=== PATIENT | female | born 1955 | race Caucasian/White ===

== ENCOUNTER → 2022-09-29 09:47 | Outpatient (BNVA) | payer MEDICARE, OTHER, SELFPAY | PROVIDERS: Family Provider Nurse Practitioner Family; PCP Family Medicine; Visit Provider Family Medicine | DX: Z13.220 Encounter for screening for lipoid disorders (principal); Z13.6 Encounter for screening for cardiovascular disorders; F17.219 Nicotine dependence, cigarettes, with unspecified nicotine-induced disorders; M62.830 Muscle spasm of back; Z76.89 Persons encountering health services in other specified circumstances | CPT/HCPCS: 80053; 80061; 85025 ==

== ENCOUNTER 2022-10-12 15:26 | Outpatient (CLI) | payer MEDICARE, OTHER, SELFPAY ==
--- NOTE | 2022-10-12 15:38 | MM_ITS ---
WS: [id number] BILATERAL 3D TOMOSYNTHESIS DIGITAL SCREENING MAMMOGRAPHY WITH CAD CLINICAL INFORMATION: Breast CA screening. HISTORY: Screening mammogram. No current complaints. COMPARISON: None. TECHNIQUE: Bilateral CC and MLO views. FINDINGS: Scattered fibroglandular densities bilaterally. No suspicious focal mass, asymmetry, calcifications, or architectural distortion. No evidence of malignancy. Biopsy clip RIGHT breast. A few incidental pu nctate calcifications. MM/[place] [id number] IMPRESSION: BI-RADS: 2-Benign FOLLOW UP: 1 Year Follow-up Recommend return to annual screening mammography.
== END 2022-10-12 15:27 | disposition home or self-care (01) ==
LOC: RAD 15:31
PROVIDERS: PCP Family Medicine; Visit Provider Family Medicine
DX: Z12.31 Encounter for screening mammogram for malignant neoplasm of breast (principal)
CPT/HCPCS: 77063; 77067

== ENCOUNTER 2022-10-13 14:21 | Outpatient (CLI) | payer MEDICARE, OTHER, SELFPAY ==
--- NOTE | 2022-10-13 14:30 | CT_ITS ---
WS: [id number] LDCT LUNG CANCER SCREENING TECHNIQUE: Noncontrast CT of the chest with coronal and sagittal reformatted images. CLINICAL INFORMATION: Lung CA screening. 50 pack years. COMPARISON: None. DLP: 79.10 mGy.cm DIvol: Mean CTDIvol: 1.80 (mGy) All CT scans at [facility] use at least one of these dose optimization techniques: automat ed exposure control; mA and/or kV adjustment per patient size (includes targeted exams where dose is matched to clinical indication); or iterative reconstruction. FINDINGS: Moderate chronic emphysematous changes. RIGHT upper lobe nodule measuring 5.3 mm. Small LEFT lower lo be nodule at the diaphragm measuring 4 mm. Subpleural nodule LEFT lower lobe laterally measuring 7 mm . Additional LEFT lower lobe nodule laterally measuring 6 mm. Noncalcified nodule RIGHT lower lobe la terally measuring 5 mm. Normal caliber thoracic aorta. Aortic calcification. Coronary calcification. No mediastinal or hilar lymphadenopathy. No axillary lymphadenopathy. Adrenal glands are normal. Small esophageal hiatal hernia. CT/CT lung screening [id number] IMPRESSION: Multiple noncalcified nodules measuring 6 to 7 mm. Recommend 6 aracelis h follow-up. No prior comparisons. LUNG-RADS: 3-Probably Benign FOLLOW UP: 6 Month LDCT
== END 2022-10-13 14:22 | disposition home or self-care (01) ==
LOC: RAD 14:23
PROVIDERS: PCP Family Medicine; Visit Provider Family Medicine
DX: Z12.2 Encounter for screening for malignant neoplasm of respiratory organs (principal); F17.219 Nicotine dependence, cigarettes, with unspecified nicotine-induced disorders
CPT/HCPCS: 71271

== ENCOUNTER 2023-07-26 06:59 | Inpatient (IN) | payer MEDICARE, OTHER, SELFPAY ==
[2023-07-26] VITALS (11 sets, daily range): BP systolic 122–166; BP diastolic 59–103; PULSE 65–94; RESP 14–26; TEMP 36.6–37.1; O2SAT 91–96; BMI 30.5; BMI 31.3
--- NOTE | 2023-07-26 07:06 | CTR_ITS ---
PROCEDURE INFORMATION: Exam: CT Head Without Contrast Exam date and time: 07/26/2023 7:02 AM Age: 68 years old Clinical indication: Stroke-like symptoms; Speech disturbance; Additional info: Symptoms of acute stroke TECHNIQUE: Imaging protocol: Computed tomography of the head without contrast. Radiation optimization: All CT scans at this facility use at least one of these dose optimization techniques: automated exposure control; mA and/or kV adjustment per patient size (includes targeted exams where dose is matched to clinical indication); or iterative reconstruction. Other technique: STROKE PROTOCOL was implemented. COMPARISON: No relevant prior studies available. RADIATION DOSE METRICS: Total DLP (mGy-cm): 1011.38 FINDINGS: Brain: There is early evolving right opercular acute infarct. There is no midline shift, acute hemorrhage or extra-axial fluid collection. Cerebral ventricles: No ventriculomegaly. Paranasal sinuses: Mucosal thickening is noted within ethmoid air cells with fluid in the visualized maxillary antra. Mastoid air cells: Visualized mastoid air cells are well aerated. Bones/joints: Unremarkable. No acute fracture. Soft tissues: Unremarkable. CT/CT head thrombolytic [id number] IMPRESSION: Evolving acute right opercular infarct. ASSESSMENT: ASPECTS ([place] Stroke Program Early CT Score) is 9. THIS REPORT CONTAINS FINDINGS THAT MAY BE CRITICAL TO PATIENT CARE. The findings were verbally communicated via telephone conference with HUGH PRADHAN at 7:21 AM SAP ABAP PROGRAMMER on 07/26/2023. The findings were acknowledged and understood.
--- NOTE | 2023-07-26 07:06 | ECG_ITS ---
[facility] Test Date: 2023-07-26 Pat Name: Michelle Lopez Department: Room: Gender: Female Bioinformatics Associate: : 1955 Requested By: Cem Camara Order Number: [id number] Amos MD: Antonio العراقي M.D. Measurements Intervals [place] Rate: 71 P: 51 MS: 161 QRS: -48 QRSD: 108 T: -89 QT: 435 QTc: 475 Interpretive Statements SINUS RHYTHM LEFT ANTERIOR FASCICULAR BLOCK [QRS AXIS <= -45, QR IN I, RS IN II] ST ELEVATION CONSISTENT WITH INJURY, PERICARDITIS, OR EARLY REPOLARIZATION [ST ELEVATION W/O NORMALLY INFLECTED T-WAVE] ST DEVIATION AND MODERATE T-WAVE ABNORMALITY, CONSIDER ANTEROLATERAL ISCHEMIA [-0.1+ mV T-WAVE IN V3-V6] ST DEVIATION AND MODERATE T-WAVE ABNORMALITY, CONSIDER INFERIOR ISCHEMIA [-0.1+ mV T-WAVE IN II/aVF] No previous ECG available for comparison Electronically Signed On 07-26-2023 9:55:30 CHIEF ESTIMATOR by Antonio العراقي M.D. [email or web address]vis[employer] Technologiespremier health.[employer]/store/OM/[id number]
--- NOTE | 2023-07-26 07:11 | ED_ITS ---
HPI - Neuro Symptoms/Deficit 2 General: Chief Complaint: Neuro Symptoms/Deficit Stated Complaint: weakness, possible stroke Time Seen by Provider: 07/26/23 07:06 Source: patient Mode of arrival: EMS History of Present Illness: 68-year-old female who presents to the e mergency room with left-sided ataxia and weakness as well as some word finding difficulty and dysarthria. She went to bed last night at around 8 or 830 in her normal state of health with no deficits that she woke up sometime middle of the night and fell evidently her son heard her fall talk to her but cannot completely confirm that she was normal at that time this morning when she woke up she was distinctively abnormal and called EMS. She denies any chest pain. She is not diabetic. She is not prescribed any anticoagulants. She is not on any antiplatelet therapy Onset (ago): hour(s) Last Observed Normal: 20:00 Location: speech History of same: No Severity: moderate Quality: weak and tingling Relieving factors: none Exacerbating factors: none Associated symptoms: Reports weakness; Deny chest pain, cough, diaphoresis, fevers/chills, headache(s), anorexia, malaise, nausea, seizures, short of breath, syncope, tingling, vertigo or vomiting Treatments Prior to Arrival: none Review of Systems 2 Const: Denies: fever(s), chills, malaise or diaphoresis Card: Denies: chest pain or syncope Resp: Denies: dyspnea GI: Denies: abdominal pain, nausea or vomiting : Denies: dysuria, urinary frequency or urinary urgency Musc: Denies: neck pain or back pain Skin/Breast: Denies: rash Neuro: Denies: headache(s) or vertigo PFSH ED 2 PFSH: Family History Mother Diabetes Other CAD (coronary artery disease) Cancer Hypertension Social History Smoking and tobacco/nicotine status: current every day tobacco/nicotine user cigarettes Packs smoked per day: 1 Second hand smoke exposure: No Alcohol intake: current Alcohol intake frequency: holidays/special occasions only Substance/Drug Use: never Adopted: No Caregiver/support person: No Lives independently: Yes Marital status: Single Number of children: 2 service: No Current occupational status: employed Current occupational exposures/hazards: No Pets and animals: No Do you think of yourself as: Straight/Heterosexual Current gender identity: Female Female Reproductive History: Spontaneous abortions: No NIH stroke score 2 NIHSS: Level Of Consciousness - 1a: 0 Level Of Consciousness Questions - 1b: Both Correct Level Of Consciousness Commands - 1c: Both Correct Best Gaze - 2: Normal Visual Myers - 3: No Visual Loss Facial Palsy - 4: N ormal Motor Arm Right - 5: No Drift Motor Arm Left - 5: Drift Motor Leg Right - 6: No Drift Motor Leg Left - 6: Drift Limb Ataxia - 7: Present In One Limb Sensory - 8: Mild To Moderate Loss Best Language - 9: M ild/Moderate Aphasia Dysarthia - 10: Mild/Moderate Dysarthia Extinction And Inattention - 11: 0 Score: Total Score: 6 Physical Exam 2 Const: COMMON NORMALS: no acute distress and healthy appearing GENERAL APPEARANCE: cooperative and comfortable ORIENTATION/CONSCIOUSNESS: Yes awake, Yes oriented to person, Yes oriented to place and Yes oriented to time HENMT: COMMON NORMALS: normocephalic, atraumatic and hearing grossly normal bilaterally HEAD & SCALP: normocephalic and atraumatic Resp: COMMON NORMALS: normal respiratory effort, No retractions, No use of accessory muscles and clear to auscultation bilaterally AUSCULTATION: clear to auscultation bilaterally Cardio: COMMON NORMALS: regular rate, regular rhythm and No murmurs present (Cardio) RATE: regular rate RHYTHM: regular rhythm GI: COMMON NORMALS: Soft to palpation and No hepatosplenomegaly present A USCULTATION: Yes normoactive bowel sounds PALPATION: Yes Soft to palpation, No Tenderness to palpation present (GI), No Guarding due to palpation present (GI) and Yes No hepatosplenomegaly present Extremity: COMMON NORMALS: normal to inspection, capillary refill normal, no clubbing, cyanosis or edema, no calf tenderness and no pedal edema Neuro: SENSORIUM/ORIENTATION: Yes oriented to person, Yes oriented to place and Yes oriented to time OTHER: See NIH scoring system. Patient's is 6 Psych: COMMON NORMALS: mental status grossly normal Skin: COMMON NORMALS: no rashes or lesions noted GENERAL SKIN EXAM: no rashes or lesions noted Course 2 Vital Signs: Vital signs: Vital Signs Temperature 98 F 07/26/23 07:09 Pulse Rate 75 07/26/23 08:30 Respiratory Rate 16 07/26/23 08:30 Blood Pressure 143/72 07/26/23 08:30 Pulse Oximetry 96 07/26/23 08:30 Oxygen Delivery Me thod Room Air 07/26/23 08:30 MDM - Neuro Symptoms/Deficit Medical Decision Making Acute RCA CVA. Discussed with radiologist there is no identifiable embolism. She is outside the timeframe for any anticoagulation intervention. Will admit to hospitalist service for further workup and secondary stroke prevention Medical Records I reviewed the patient's medical records. Lab Data I reviewed the patient's lab results. 07/26/23 08:02 07/26/23 08:[address] 07/26/23 07:06 IMPRESSION: Evolving acute right opercular infarct. ASSESSMENT: ASPECTS ([place] Stroke Program Early CT Score) is 9. THIS REPORT CONTAINS FINDINGS THAT MAY BE CRITICAL TO PATIENT CARE. The findings were verbally communicated via telephone conference with CEM PRADHAN at 7:21 AM VENEER MATCHER on 07/26/2023. The findings were acknowledged and understood. Laboratory Results WBC 12.19 10^3/uL (3.29-11.43) H 07/26/23 08:02 Corrected WBC Cancelled 07/26/23 06:37 RBC 3.40 10^6/uL (3.85-5.65) L 07/26/23 08:02 Hgb 12.70 g/dL (11.27-16.99) 07/26/23 08:02 Hct 34.3 % (36-47) L 07/26/23 08:02 MCV 100.9 fl (85-98) H 07/26/23 08:02 MCH 37.4 pg (27-33) H 07/26/23 08:02 MCHC 37.0 g/dL (30-55) 07/26/23 08:02 RDW 17.5 % (12.1-15.1) H 07/26/23 08:02 Plt Count 330 10^3/cmm (157-399) 07/26/23 08:02 MPV 9.8 fL (7.4-10.4) 07/26/23 08:02 Gran % Cancelled 07/26/23 06:37 Neut % (Auto) 75.5 % 07/26/23 08:02 Lymph % (Auto) 16.3 % 07/26/23 08:02 [place] % (Auto) 6.4 % 07/26/23 08:02 Eos % (Auto) 0.7 % 07/26/23 08:02 Baso % (Auto) 0.4 % 07/26/23 08:02 Neut # (Auto) 9.19 10^3/uL (1.8-7.7) H 07/26/23 08:02 Lymph # (Auto) 2.0 10^3/uL (0.8-4.8) 07/26/23 08:02 [place] # (Auto) 0.8 10^3/uL (0.2-0.9) 07/26/23 08:02 Eos # (Auto) 0.1 10^3/uL (0.0-0.8) 07/26/23 08:02 Baso # (Auto) 0.1 10^3/uL (0.0-0.1) 07/26/23 08:02 Absolute Gran (auto) Cancelled 07/26/23 06:37 Nucleated RBC % (auto) 0 % 07/26/23 08:02 Nucleated RBCs # 0.0 /100WBC 07/26/23 08:02 PT 12.70 SECONDS (12.1-14.9) 07/26/23 06:37 INR 0.93 (0.8-1.2) 07/26/23 06:37 APTT 25.6 SECONDS (23.9-36.7) 07/26/23 06:37 Sodium 133 mmol/L (136-145) L 07/26/23 08:02 Potassium 4.2 mmol/L (3.5-5.1) 07/26/23 08:02 Chloride 101 mmol/L (98-107) 07/26/23 08:02 Carbon Dioxide 21 mmol/L (22-29) L 07/26/23 08:02 Anion Gap 15.2 (5-19) 07/26/23 08:02 BUN 13 mg/dL (8-23) 07/26/23 08:02 Creatinine 0.7 mg/dL (0.5-0.9) 07/26/23 08:02 GFR Calculation 83.7 mL/min (90-130) L 07/26/23 08:02 Glucose 126 mg/dL (65-115) H 07/26/23 08:02 POC Glucose 147 mg/dL (70-110) H 07/26/23 07:15 Calculated Osmolality 278 mOsm/kg (285-295) L 07/26/23 08:02 Calcium 9.2 mg/dL (8.5-10.5) 07/26/23 08:02 Total Bilirubin 0.9 mg/dL (0.15-1.2) 07/26/23 08:02 AST 18 U/L (0-32) 07/26/23 08:02 ALT 12 U/L (0-33) 07/26/23 08:02 Alkaline Phosphatase 108 U/L (35-105) H 07/26/23 08:02 Troponin T Baseline 95 ng/L (0-10) H 07/26/23 06:37 Troponin T 120 Minute 99.41 ng/L (0-10) H 07/26/23 08:02 Delta Troponin T 4.41 ABS# (0-10) 07/26/23 08:02 Total Protein 6.9 g/dL (6.6-8.7) 07/26/23 08:02 Albumin 4.0 g/dL (3.5-5.2) 07/26/23 08:02 Globulin 2.9 g/dL (1.3-4.6) 07/26/23 08:02 Ethyl Alcohol < 10 mg/dL (0-10) 07/26/23 08:02 All radiology interpretation(s) finalized by discharge Discharge Plan Discharge Patient Disposition: Admitted As Inpatient Admit Provider: Francine Grider Clinical Impression: Cerebrovascular accident Condition: Stable Coding Level of Care Code ED Cutting And Boning Supervisor for Chg Fwd
[2023-07-26 07:19] LABS: Glucose Point of Care 147 mg/dL (70-110)
--- NOTE | 2023-07-26 07:21 | CT_ITS ---
WS: [id number] CT ANGIOGRAM CEREBRAL AND CAROTID ARTERIES HISTORY: acute CVA TECHNIQUE: CT angiogram is performed of the carotid and cerebral arteries. During arterial injection imaging is obtained from the skull vertex to the aortic arch in 1.25 mm imaging. Coronal and sagittal reformats are submitted. Additional multi planar reformats of the carotid and cerebral arteries are submitted, MIP imaging also reviewed. NASCET criteria utilized. [facility] at least one of these dose optimization techniques: automated exposure control; mA and/or kV adjust ment per patient size (includes targeted exams where dose is matched to clinical indication); or iter ative reconstruction. CONTRAST: Omnipaque 350; 100 mL IV. DLP: 477.30 mGy.cm COMPARISON: CT brain 07/26/2023. Carotid Angiogram: Right carotid: Common carotid artery: Arises normally from the innominate artery. No significant plaque or stenosis. Internal carotid artery: No plaque or stenosis. External carotid artery: Patent. Left carotid: Common carotid artery: Arises normally from the aorta. No significant plaque or stenosis. Internal carotid artery: Very mild intimal thickening. No high-grade obstruction. External carotid artery: Patent. Right vertebral artery: Unremarkable. Left vertebral artery: Small caliber but patent. Subclavian arteries: Small amount of calcified plaque at the origin of the subclavian arteries. No hi gh-grade stenosis. Upper thorax: Chronic centrilobular emphysematous changes at the lung apices. Thyroid gland: Normal. Osseous structures: No destructive bone lesions. CEREBRAL ANGIOGRAM: Intracranial vertebral arteries: Small caliber but patent LEFT vertebral artery. Normal RIGHT vertebr al artery. Basilar artery: No significant stenosis or occlusion. No aneurysm. Intracranial Internal carotid arteries: Moderate scattered calcified plaque with stenoses estimated a t greater than 60%. Large amount of plaque in the supraclinoid carotid arteries. Middle cerebral arteries: Normal. Questionable paucity of vessels distally. No filling defects. Anterior cerebral arteries and ACOM: Normal. Posterior cerebral arteries and PCOM's: Normal. Dural venous sinuses are normally enhancing. Mastoid air cells: Negative. Paranasal sinuses: Small air-fluid levels in the maxillary sinuses. Calvarium: Normal. IMPRESSION: 1. No significant cervical carotid artery stenosis. 2. Increasing plaque through the cavernous portions of the intracranial carotid arteries. Stenosis g reater than 60%, greatest in the supraclinoid carotid arteries and greater on the RIGHT. 3. No thrombus identified in the middle cerebral arteries. 4. There may be very slight paucity of vessels in the distal RIGHT MCA. There is mild displacement o f the vessels related to the evolving infarct in the parietal lobe.
[2023-07-26 07:24] LABS: INR 0.93 (0.8-1.2)
[2023-07-26 07:25] LABS: Partial Thromboplastin Time 25.6 SECONDS (23.9-36.7)
[2023-07-26] MEDS: iohexol 350 mg/mL 500 mL Btl (per mL) IV (07:36)
[2023-07-26 07:51] LABS: Troponin(5th) Baseline 95 ng/L (0-10)
[2023-07-26 08:32] LABS: Alanine Aminotransferase 12 U/L (0-33); Alkaline Phosphatase 108 U/L (35-105); Anion Gap 15.2 (5-19); Aspartate Amino Transferase 18 U/L (0-32); Blood Urea Nitrogen 13 mg/dL (8-23); Calcium 9.2 mg/dL (8.5-10.5); Carbon Dioxide 21 mmol/L (22-29); Chloride 101 mmol/L (98-107); Globulin 2.9 g/dL (1.3-4.6); Glomerular Filtration Rate 83.7 mL/min (90-130); Glucose 126 mg/dL (65-115); Osmolality Calculated 278 mOsm/kg (285-295); Potassium 4.2 mmol/L (3.5-5.1); Sodium 133 mmol/L (136-145); Total Bilirubin 0.9 mg/dL (0.15-1.2); Total Protein 6.9 g/dL (6.6-8.7)
[2023-07-26 08:34] LABS: Troponin 5 2HR 99.41 ng/L (0-10); Troponin 5 2HR Delta 4.41 ABS# (0-10)
[2023-07-26 08:40] LABS: Alcohol Level < 10 mg/dL (0-10)
[2023-07-26 09:09] LABS: Basophils # 0.1 10^3/uL (0.0-0.1); Basophils % 0.4 %; Eosinophils # 0.1 10^3/uL (0.0-0.8); Eosinophils % 0.7 %; Hematocrit 34.3 % (36-47); Lymphocytes % 16.3 %; Mean Corpuscular Hemoglobin 37.4 pg (27-33); Mean Corpuscular Volume 100.9 fl (85-98); Mean Platelet Volume 9.8 fL (7.4-10.4); Monocytes # 0.8 10^3/uL (0.2-0.9); Monocytes % 6.4 %; Neutrophils # 9.19 10^3/uL (1.8-7.7); Neutrophils % 75.5 %; Nucleated Red Blood Cells % 0 %; Platelet Count 330 10^3/cmm (157-399); Red Cell Distribution Width 17.5 % (12.1-15.1); White Blood Count 12.19 10^3/uL (3.29-11.43)
--- NOTE | 2023-07-26 09:14 | ECG_ITS ---
[facility] Test Date: 2023-07-26 Pat Name: Michelle Lopez Department: Room: EDIP Gender: Female Bryologist: : 1955 Requested By: Cem Camara Order Number: [id number] Amos MD: Antonio العراقي M.D. Measurements Intervals [place] Rate: 72 P: 64 CT: 176 QRS: -50 QRSD: 109 T: 256 QT: 441 QTc: 484 Interpretive Statements SINUS RHYTHM LEFT ANTERIOR FASCICULAR BLOCK [QRS AXIS <= -45, QR IN I, RS IN II] ST and T changes anterior precordial leads. Consider pericardial injury, myocardial injury or central nervous system injury. Compared to ECG 07/26/2023 07:11:15 Myocardial infarct finding now present Early repolarization no longer present ST (T wave) deviation still present Electronically Signed On 07-26-2023 10:13:48 INFORMATION SYSTEMS PLANNER by Antonio العراقي M.D. [id number]
[2023-07-26] MEDS: sodium chloride 0.9% 1,000 ML 100 ML IV ×2 (09:28→18:20)
[2023-07-26] MEDS: aspirin 325 mg Tablet PO (09:29)
[2023-07-26 11:18] LABS: Amphetamines Screen Urine Negative (Negative); Barbiturates Screen Urine Negative (Negative); Benzodiazepines Screen Urine Negative (Negative); Cocaine Screen Urine Negative (Negative); Opiate Screen Urine Negative (Negative); PCP Screen Urine Negative (Negative); THC Screen Urine Negative (Negative)
[2023-07-26 11:24] LABS: Add Urine Microscopic? YES; Bilirubin Urine Neg (Negative); Blood Urine 2+ (Negative); Glucose Urine UA Norm (Normal); Ketones Urine Negative (Negative); Leukocyte Esterase Urine Negative (Negative); Nitrate Urine Negative (Negative); Protein Urine Trace (Negative); Specific Gravity, Urine 1.005 (1.005-1.030); Urine Appearance Clear (CLEAR); Urine Color Yellow (Yellow); Urobilinogen Urine 1 mg/dL (Negative); pH Urine 6.5 (5-7)
[2023-07-26 11:26] LABS: Add Urine Culture? No; Bacteria Urine 1+ /hpf; Mucus Urine TRACE /hpf; RBC Urine 0-4 /hpf (0-2); Squamous Epithelial Cell Urine 0-4 /hpf (0-5); WBC Urine 0-4 /hpf (0-5)
--- NOTE | 2023-07-26 11:55 | P.HP_ITS ---
Providers/Chief Complaint 2 Admitting Physician: Francine Grider MD Primary Care Provider: Prem Wade DO Chief Complaint: weakness, possible stroke History of Present Illness Michelle Lopez is a 68 year old female with history of chronic smoking , no other known medical comorbidities p/w stroke like symptoms that started at 7: 30 pm last night. Patient states she was just heading to bed, when she noticed her left arm drifting mildly and not being in control of her arm. She went to bed not making much of her symptoms. She woke up at 8: 30 pm to walk to the bathroom but states that she fell on the way. She has some scrapes over her left knee from this fall. She was still able to get up and walk to the bathroom and back into bed. States that left arm had continued to feel funny . States she felt disoriented when she woke up but this is not unusual for her. Then when she woke up this morning, she noticed that her leg arm was weaker, she was unsteady on her feet and needed to crawl to her son's bedroom to get help and now also had dysarthria and word finding difficulty. Cam to ER with abover complaints. CT head shows evolving stroke and CTA showed no MCA occlusion but proximal 60% stenosis of the intracranial carotid artery on the left . no h/o HTN. DM. HLD. Review of Systems 2 General: Reports: 10 or more systems reviewed and unremarkable except in HPI and below Const: Denies: fever(s), chills or body aches Eyes: Denies: change in vision, blurry vision or photophobia ENMT: Reports: hoarseness; Denies: throat pain, enlarged tonsils, odynophagia or nasal congestion Card: Denies: chest pain, palpitations, irregular heart rhythm, edema, swelling of feet/ankles, lightheadedness, pre-syncope, dyspnea on exertion or orthopnea Resp: Denies: dyspnea, productive cough, non-productive cough, wheezing, stridor, pain on inspiration, change in phlegm color, hemoptysis or chest congestion GI: Denies: abdominal pain, nausea, vomiting, hematemesis, coffee ground emesis, dysphagia, heartburn, diarrhea, constipation, GI cramping, change in stool character, hematochezia or melena : Denies: flank pain, difficulty voiding, dysuria, urinary frequency, urinary urgency, urinary hesitancy or hematuria Musc: Denies: neck pain, back pain, extremity pain, joint swelling, joint warmth or deformity Neuro: Denies: headache(s), numbness in extremities, weakness in extremities, sensory changes, difficulty walking, frequent falls, dizziness, vertigo, behavioral changes, Slurred speech present or seizure-like activity Psych: Denies: anxiety, depression, suicidal ideation or homicidal ideation Endo: Denies: polyuria, polydipsia, tired all the time, cold intolerance or hot flashes Guero/Lymph: Denies: easy bruising or easy bleeding Medications/Allergies Home Medications Medication Instructions Recorded Confirmed Last Taken Type tizanidine 4 mg tablet 4 mg PO BID PRN muscle spasticity 09/29/22 09/29/22 Unknown Rx #20 tabs Allergies Allergy/AdvReac Type Severity Reaction Status Date / Time No Known Allergies Allergy Verified 07/26/23 07:14 PFSH Acute 2 PFSH: Family History Mother Diabetes Other CAD (coronary artery disease) Cancer Hypertension Social History Smoking and tobacco/nicotine status: current every day tobacco/nicotine user cigarettes Packs smoked per day: 1 Second hand smoke exposure: No Alcohol intake: current Alcohol intake frequency: holidays/special occasions only Substance/Drug Use: never Adopted: No Caregiver/support person: No Lives independently: Yes Marital status: Single Number of children: 2 service: No Current occupational status: employed Current occupational exposures/hazards: No Pets and animals: No Do you think of yourself as: Straight/Heterosexual Current gender identity: Female Female Reproductive History: Spontaneous abortions: No Vitals/I&O/Wt Last Vital Signs Temp 98 F 07/26/23 07:09 Pulse 80 07/26/23 11:46 Resp 15 07/26/23 11:46 BP 143/59 07/26/23 11:46 Pulse Ox 93 07/26/23 11:46 O2 Del Method Room Air 07/26/23 08:30 07/25/23 07/26/23 07/26/23 22:59 06:59 14:59 Intake Total 1000 / 1000 Balance 1000 / 1000 Weight last 48 hrs Weight 80.739 kg Physical Exam 2 Narrative: General: No acute distress, AO x3 HEENT: PERRLA, pupils bilaterally equal and reactive, pallors not present Chest: Normal vesicular breath sounds, no added sounds, equal good air entry bilaterally CVS: S1-S2 regular, no murmurs, no tachycardia, no gallops, no rubs Abdomen: Soft, nontender, no organomegaly, bowel sounds present Neuro: NIHSS 6, left upper and lower extremity drift, dysarthria, facial asymmetery, intermittent word finding difficulty Data 07/26/23 08:02 07/26/23 08:02 Other data: Radiology Impressions Head CT 07/26/23 07:06 IMPRESSION: Evolving acute right opercular infarct. ASSESSMENT: ASPECTS ([place] Stroke Program Early CT Score) is 9. 07/26/23 CTA head and neck IMPRESSION: 1. No significant cervical carotid artery stenosis. 2. Increasing plaque through the cavernous portions of the intracranial carotid arteries. Stenosis greater than 60%, greatest in the supraclinoid carotid arteries and greater on the RIGHT. 3. No thrombus identified in the middle cerebral arteries. 4. There may be very slight paucity of vessels in the distal RIGHT MCA. There is mild displacement of the vessels related to the evolving infarct in the parietal lobe. THIS REPORT CONTAINS FINDINGS THAT MAY BE CRITICAL TO PATIENT CARE. The findings were verbally communicated via telephone conference with HUGH PRADHAN at 7:21 AM SOCIAL SCIENCE INSTRUCTOR on 07/26/2023. The findings were acknowledged and understood. Laboratory Results WBC 12.19 10^3/uL (3.29-11.43) H 07/26/23 08:02 Corrected WBC Cancelled 07/26/23 06:37 RBC 3.40 10^6/uL (3.85-5.65) L 07/26/23 08:02 Hgb 12.70 g/dL (11.27-16.99) 07/26/23 08:02 Hct 34.3 % (36-47) L 07/26/23 08:02 MCV 100.9 fl (85-98) H 07/26/23 08:02 MCH 37.4 pg (27-33) H 07/26/23 08:02 MCHC 37.0 g/dL (30-55) 07/26/23 08:02 RDW 17.5 % (12.1-15.1) H 07/26/23 08:02 Plt Count 330 10^3/cmm (157-399) 07/26/23 08:02 MPV 9.8 fL (7.4-10.4) 07/26/23 08:02 Gran % Cancelled 07/26/23 06:37 Neut % (Auto) 75.5 % 07/26/23 08:02 Lymph % (Auto) 16.3 % 07/26/23 08:02 Green % (Auto) 6.4 % 07/26/23 08:02 Eos % (Auto) 0.7 % 07/26/23 08:02 Baso % (Auto) 0.4 % 07/26/23 08:02 Neut # (Auto) 9.19 10^3/uL (1.8-7.7) H 07/26/23 08:02 Lymph # (Auto) 2.0 10^3/uL (0.8-4.8) 07/26/23 08:02 Green # (Auto) 0.8 10^3/uL (0.2-0.9) 07/26/23 08:02 Eos # (Auto) 0.1 10^3/uL (0.0-0.8) 07/26/23 08:02 Baso # (Auto) 0.1 10^3/uL (0.0-0.1) 07/26/23 08:02 Absolute Gran (auto) Cancelled 07/26/23 06:37 Nucleated RBC % (auto) 0 % 07/26/23 08:02 Nucleated RBCs # 0.0 /100WBC 07/26/23 08:02 PT 12.70 SECONDS (12.1-14.9) 07/26/23 06:37 INR 0.93 (0.8-1.2) 07/26/23 06:37 APTT 25.6 SECONDS (23.9-36.7) 07/26/23 06:37 Sodium 133 mmol/L (136-145) L 07/26/23 08:02 Potassium 4.2 mmol/L (3.5-5.1) 07/26/23 08:02 Chloride 101 mmol/L (98-107) 07/26/23 08:02 Carbon Dioxide 21 mmol/L (22-29) L 07/26/23 08:02 Anion Gap 15.2 (5-19) 07/26/23 08:02 BUN 13 mg/dL (8-23) 07/26/23 08:02 Creatinine 0.7 mg/dL (0.5-0.9) 07/26/23 08:02 GFR Calculation 83.7 mL/min (90-130) L 07/26/23 08:02 Glucose 126 mg/dL (65-115) H 07/26/23 08:02 POC Glucose 147 mg/dL (70-110) H 07/26/23 07:15 Calculated Osmolality 278 mOsm/kg (285-295) L 07/26/23 08:02 Calcium 9.2 mg/dL (8.5-10.5) 07/26/23 08:02 Total Bilirubin 0.9 mg/dL (0.15-1.2) 07/26/23 08:02 AST 18 U/L (0-32) 07/26/23 08:02 ALT 12 U/L (0-33) 07/26/23 08:02 Alkaline Phosphatase 108 U/L (35-105) H 07/26/23 08:02 Troponin T Baseline 95 ng/L (0-10) H 07/26/23 06:37 Troponin T 120 Minute 99.41 ng/L (0-10) H 07/26/23 08:02 Delta Troponin T 4.41 ABS# (0-10) 07/26/23 08:02 Total Protein 6.9 g/dL (6.6-8.7) 07/26/23 08:02 Albumin 4.0 g/dL (3.5-5.2) 07/26/23 08:02 Globulin 2.9 g/dL (1.3-4.6) 07/26/23 08:02 Urine Color Yellow (Yellow) 07/26/23 10:59 Urine Appearance Clear (CLEAR) 07/26/23 10:59 Urine pH 6.5 (5-7) 07/26/23 10:59 Ur Specific [place] 1.005 (1.005-1.030) 07/26/23 10:59 Urine Protein Trace (Negative) 07/26/23 10:59 Urine Glucose (UA) Norm (Normal) 07/26/23 10:59 Urine Ketones Negative (Negative) 07/26/23 10:59 Urine Blood 2+ (Negative) H 07/26/23 10:59 Urine Nitrate Negative (Negative) 07/26/23 10:59 Urine Bilirubin Neg (Negative) 07/26/23 10:59 Urine Urobilinogen 1 mg/dL (Negative) H 07/26/23 10:59 Ur Leukocyte Esterase Negative (Negative) 07/26/23 10:59 Urine RBC 0-4 /hpf (0-2) H 07/26/23 10:59 Urine WBC 0-4 /hpf (0-5) H 07/26/23 10:59 Ur Squamous Epith Cells 0-4 /hpf (0-5) H 07/26/23 10:59 Amorphous Sediment Not Reportable 07/26/23 10:59 Urine Bacteria 1+ /hpf (NONE) H 07/26/23 10:59 Urine Mucus Trace /hpf 07/26/23 10:59 Urine Opiates Screen Negative ng/mL (Negative) 07/26/23 10:59 Ur Barbiturates Screen Negative ng/mL (Negative) 07/26/23 10:59 Ur Phencyclidine Scrn Negative ng/mL (Negative) 07/26/23 10:59 Ur Amphetamines Screen Negative ng/mL (Negative) 07/26/23 10:59 U Benzodiazepines Scrn Negative ng/mL (Negative) 07/26/23 10:59 Urine Cocaine Screen Negative ng/mL (Negative) 07/26/23 10:59 U Marijuana (THC) Screen Negative ng/mL (Negative) 07/26/23 10:59 Ethyl Alcohol < 10 mg/dL (0-10) 07/26/23 08:02 A&P Assessment and plan (1) Cerebrovascular accident: 68F with acute stroke NIHSS [address] head with Evolving acute right opercular infarct. CTA head and neck with Increasing plaque through the cavernous portions of the intracranial carotid arteries. Stenosis greater than 60%, greatest in the supraclinoid carotid arteries and greater on the RIGHT. No thrombus identified in the middle cerebral arteries.There may be very slight paucity of vessels in the distal RIGHT MCA. There is mild displacement of the vessels related to the evolving infarct in the parietal lobe. Call placed to neuroconsult line at [facility] to discuss above findings. Not a candidate for tPA as > 12 hrs since symptoms onset at this point Admit to med surg with stroke monitoring telemetry monitoring EKG notes to have ST-T changes in anterolatreal leads , unknown timeline of the same ERP discussed with nanny caregiver Dr. العراقي- appears to be related to acute stroke Check troponin series at 6 hrs Baseline trop elevated at 99, delta not significant at 2 hrs , trending down . Likely related to acute stroke patient denies any chest pain, dyspnea at this time Check echocardiogram PT/OT/ speech therapy check lipid panel, hba1c start ASA 81 mg, Atorvaststain 40mg with plan to add plavix after discussion with neurology Attestations 2 Medical Necessity Statement*: > 2 midnight admission is anticipated Coding Level of Care Code Acute Code for [facility] Fwd Diagnoses Cerebrovascular accident I63.9
[2023-07-26 12:26] LABS: Chol HDL Ratio 4.68 mg/dL (0.0-4.40); Cholesterol 220 mg/dL (0-200); HDL Cholesterol 47 mg/dL (60-100); LDL Cholesterol Calculated 158 mg/dL (50-129); LDL HDL Ratio 3.36 RATIO (0.00-3.22); Triglycerides 74 mg/dL (0-150)
[2023-07-26 12:32] LABS: Estmated Average Glucose 114; Hemoglobin A1C 5.6 % (4.0-6.0)
[2023-07-26 12:49] LABS: Troponin 5 6HR 92.43 ng/L (0-10)
[2023-07-26 12:50] LABS: Troponin 5 6HR Delta -2.57 ng/L (0-12)
--- NOTE | 2023-07-26 13:14 | ECG_ITS ---
[facility] Test Date: 2023-07-26 Pat Name: Michelle Lopez Department: Room: EDIP Gender: Female Scaleman: : 1955 Requested By: Cem Camara Order Number: [id number] Amos MD: Salena Hunter M.D. Measurements Intervals [place] Rate: 61 P: 64 AK: 163 QRS: -50 QRSD: 112 T: 264 QT: 450 QTc: 456 Interpretive Statements SINUS RHYTHM LEFT AXIS DEVIATION [QRS AXIS < -30] MODERATE INTRAVENTRICULAR CONDUCTION DELAY [110+ ms QRS DURATION] MARKED ST ELEVATION, CONSIDER ANTERIOR INJURY [MARKED ST ELEVATION W/O NORMALLY INFLECTED T-WAVE IN V2-V5] ACUTE VT Compared to ECG 07/26/2023 09:30:18 Left-axis deviation now present Intraventricular conduction delay now present ST (T wave) deviation now present Myocardial infarct finding now present Left anterior fascicular block no longer present Electronically Signed On 07-27-2023 19:59:15 OUTBOARD TECHNICIAN by Salena Hunter M.D. [email or web address]
[2023-07-26] MEDS: clopidogrel 75 mg Tablet PO (14:42)
--- NOTE | 2023-07-26 14:52 | PC.NURSE ---
took over pt care at 1030
--- NOTE | 2023-07-26 16:06 | USCV_ITS ---
Michelle Lopez Age: 68 Gender: F : 1955 Exam Date: 07/26/2023 16:41 Ordering Phys: Francine Grider MD Technologist: CT Exam Location: [facility] [place] Indication: stroke BP: 130 / 80 HR: 69 Rhythm: Sinus Technical Quality: Adequate MEASUREMENTS (Male / Female) Normal Values 2D ECHO LVOT Diameter 2.1 cm LV Ejection Fraction MOD 2C 49.1 % LV Ejection Fraction 2C AL 48.5 % LA Diameter 3.8 cm Aorta at Sinotubular Diameter 2.3 cm IVC Diameter 1.8 cm M-MODE Aortic Annulus Diameter 3.8 cm LA Ao Ratio MM 1.2 MV E Point Septal Separation 1.1 cm DOPPLER AV Peak Velocity 166.0 cm/s LVOT Peak Velocity 107.0 cm/s AV Area Cont Eq vti 2.5 cm squared AV Area Cont Eq pk 2.1 cm squared MV E' Velocity 9.0 cm/s TR Peak Velocity 133.7 cm/s TR Peak Gradient 7.1 mmHg TV Peak E Velocity 80.0 cm/s Right Atrial Pressure 3.0 mmHg Pulmonary Artery Systolic Pressu 10.1 mmHg PV Peak Velocity 129.0 cm/s FINDINGS Left Ventricle Severe diffuse hypokinesis of the LV apex. LV ejection fraction around 49%. Features of apical ballooning.mild left ventricular hypertrophy. Grade I/IV diastolic dysfunction (abnormal relaxation filling pattern), normal to mildly elevated filling pressures. Right Ventricle The right ventricle is normal in size and function. Right Atrium The right atrium is normal in size. Left Atrium Mildly increased left atrial size. Mitral Valve Mild mitral annular calcification. Aortic Valve Thickened aortic valve. Tricuspid Valve No gross abnormalities no Pulmonic Valve Pulmonic valve not well visualized. Pericardium Normal pericardium without effusion. Aorta Normal ascending aorta dimension. IVC The inferior vena cava appears normal. CONCLUSIONS Severe diffuse hypokinesis of the LV apex. LV ejection fraction around 49%. Features of apical ballooning, may suggest Takotsubo Mmild left ventricular hypertrophy. Grade I/IV diastolic dysfunction (abnormal relaxation filling pattern), normal to mildly elevated filling pressures. Mildly increased left atrial size. Mild mitral annular calcification. Thickened aortic valve. There is no pericardial effusion. There are no intracardiac masses. No similar previous studies are available for comparison Dr Salena Hunter MD FACC (Electronically Signed) Final Date: 27 July 2023 09:03 S
[2023-07-26] MEDS: atorvastatin 40 mg Tablet PO (20:19)
[2023-07-27] VITALS (7 sets, daily range): BP systolic 106–146; BP diastolic 66–75; PULSE 68–85; RESP 16–18; TEMP 36.4–36.9; O2SAT 91–97
[2023-07-27] MEDS: sodium chloride 0.9% 1,000 ML 100 ML IV (04:17)
[2023-07-27] MEDS: aspirin 81 mg EC Tablet PO (08:18)
[2023-07-27] MEDS: clopidogrel 75 mg Tablet PO (08:18)
--- NOTE | 2023-07-27 10:03 | PC.CHAP ---
Pastoral Care Encounter/Spiritual Assessment Type of Contact [] Declined shipping inspector visit [] Patient/Family/Request visit [] Outpatient visit [] Follow-up visit [] Physician referral [] Code/Alert [x] Routine visit [] Staff referral [] Actively dying [] Patient sleeping [x] Family support [] [] Out of room [] Palliative care [] [] Receiving care in room [] Pre-surgical visit [] Trauma [] Long length of stay [] ICU visit [] Other: Relational/Emotional Strength [x] Patient feels connected with others/family/visitors/staff [] Distress [] Loneliness/isolation [] Abandonment Spirituality of Patient [x] Person of Harmony [] Attends Latter-Day of their Harmony [x] Believes in Prayer [] Reads Bible or Scientology materials [] There are Spiritual issues to be addressed Reinforcement Maker Interventions [x] Prayer [x] Active listening [x] Non-anxious presence [x] Spiritual/emotional support [] Crisis/trauma care [] Spiritual counseling [] Bereavement support [] Provided bereavement packet [] Provided Bible/devotional materials [] Provided toy/stuffed animal, coloring book to patient or family member [] Provided Communion [] Anointing/[place] [] Salvation [x] Completed spiritual assessment [] Other: Impact on Illness or Injury [] Angry [] Fearful [] Anxious [] Often cries [] Exhaustion [] Unable to work [] Unable to attend anabaptist [] Unable to walk/stand [] Unable to read [] Unable to drive [] Unable to eat/drink [] Unable to sleep [] Unable to be with family [] Patient intubated [] Other: Summary Time spent with patient 10 min
--- NOTE | 2023-07-27 16:48 | PM.PN ---
Subjective Subjective: No acute interim events. Assessed by therapies, patient was unsteady with gait and thought to benefit from skilled rehab. Cleared by speech therapy to start a diet. Medications: Reviewed: Yes Vitals/I&O/Wt Last Vital Signs Temp 97.5 F L 07/27/23 15:22 Pulse 68 07/27/23 15:22 Resp 18 07/27/23 15:22 BP 146/68 07/27/23 15:22 Pulse Ox 97 07/27/23 15:22 O2 Del Method Room Air 07/27/23 15:22 07/27/23 07/27/23 07/27/23 06:59 14:59 22:59 Intake Total 995 / 2235 480 / 480 Output Total 1800 / 1800 1500 / 1500 Balance -805 / 435 480 / 480 -1500 / -1020 Weight last 48 hrs Weight 86.908 kg Weight 82.69 kg Weight 80.739 kg Physical Exam Narrative: General: No acute distress, AO x3 HEENT: PERRLA, pupils bilaterally equal and reactive, pallors not present Chest: Normal vesicular breath sounds, no added sounds, equal good air entry bilaterally CVS: S1-S2 regular, no murmurs, no tachycardia, no gallops, no rubs Abdomen: Soft, nontender, no organomegaly, bowel sounds present Neuro: NIHSS 6, left upper and lower extremity drift, dysarthria, facial asymmetery, intermittent word finding difficulty Urinary Catheter Management: Henry: Cath Placed During This Visit: no Reason for Continuing Indwelling Catheter: Other Data 07/26/23 08:02 07/26/23 08:02 A&P Assessment and plan (1) Cerebrovascular accident: 68F with acute stroke NIHSS [address] head with Evolving acute right opercular infarct. CTA head and neck with Increasing plaque through the cavernous portions of the intracranial carotid arteries. Stenosis greater than 60%, greatest in the supraclinoid carotid arteries and greater on the RIGHT. No thrombus identified in the middle cerebral arteries.There may be very slight paucity of vessels in the distal RIGHT MCA. There is mild displacement of the vessels related to the evolving infarct in the parietal lobe. Call placed to neuroconsult line at [facility] to discuss above findings. Not a candidate for tPA as > 12 hrs since symptoms onset at this point Admit to med surg with stroke monitoring telemetry monitoring EKG notes to have ST-T changes in anterolatreal leads , unknown timeline of the same ERP discussed with ticket collector or usher Dr. العراقي- appears to be related to acute stroke Check troponin series at 6 hrs Baseline trop elevated at 99, delta not significant at 2 hrs , trending down . Likely related to acute stroke patient denies any chest pain, dyspnea at this time Check echocardiogram PT/OT/ speech therapy check lipid panel, hba1c start ASA 81 mg, Atorvaststain 40mg with plan to add plavix after discussion with neurology Plan for today July 27, 2023. Appreciate PT OT and speech therapy evaluations. Start diet.d/c IVF. ongoing disposiiton plannign for SNF. Case was discussed with neurology on[facility]call at [facility], no current indication for neurosurgical or endovascular intervention. Recommended to continue aspirin Plavix for a minimum of 3 months and follow-up as outpatient. Troponin series trended down. No chest pain.Severe diffuse hypokinesai of LV apex. LVEF 49% , features suggestive of Takosubo. Consult cardiology for the same. Attestations Medical Necessity Statement*: disposition planning, cardiology consult given abnromal findings on echo with elevated troponins Coding Level of Care Code Acute Code for g Fwd Diagnoses Cerebrovascular accident I63.9
--- NOTE | 2023-07-27 18:13 | P.CONIM_ITS ---
Providers/Reason For Consult 2 Consulting Physician/Specialty*: MARCUS Hunter MD/cardiology Reason for Consult*: Patient admitted with a CVA, has abnormal EKG, echocardiogram and elevated troponin T Requesting Physician: Dr Sarah Grider Attending Physician: Francine Grider MD Primary Care Provider: Prem Wade DO History of Present Illness History of Present Illness Michelle Lopez is a 68 year old female with no significant past medical history, is admitted to hospital to the emergency room where she presented with complaints of left-sided weakness/unsteady gait/dysarthria. CT scan of the head revealed features of acute right opercular infarct. Her stroke symptoms are slowly improving. She had an echocardiogram done which revealed severe diffuse hypokinesia of LV apex with hypercontractility of the basal segments. LV ejection fraction on 49%. Features suggestive of Takotsubo syndrome. Cardiology consult is requested for further cardiac evaluation recommendations Patient has no chest pain or chest tightness. No unusual shortness of breath. Has no history for palpitation, dizziness or syncopal episode. She had a fall because of the unsteadiness, prior to the hospital admission. She has no previous history for coronary disease, myocardial infarction or congestive heart failure. No documented history for hypertension, diabetes or dyslipidemia. She has a longstanding history of smoking abuse, 1 pack a day for the last 50 years. Also has remote history of alcohol abuse. Currently she drinks couple of beers a month. Both parents had coronary interventions in their 70s. Paternal mother of a massive heart attack in the late 50s. Her brother of heart attack while waiting for a bypass surgery. But he was an alcoholic with history of drug abuse. Patient was recently told to have high cholesterol and was advised for dietary modification. Her CTA revealed a greater than 60% stenosis in the supraclinoid carotid arteries bilaterally, more on the right side Review of Systems 2 Narrative: CONSTITUTIONAL: No fever or chills. [] EYES: No blurring of vision or other visual disturbances lately. [] ENT: No hoarseness of voice, auditory disturbances or sore throat. [] CARDIOVASCULAR: As mentioned above. RESPIRATORY: No significant cough. GASTROINTESTINAL: No hematemesis or melena. GENITOURINARY: No dysuria or hematuria. INTEGUMENTARY: No skin rashes or history of skin cancer. NEURO: No transient ischemic attacks or amaurosis. PSYCHIATRIC: No history of psychosis or major depression. HEMATOLOGIC: No bleeding disorders or significant anemia. ENDOCRINE: No history of polyuria or polydipsia. MUSCULOSKELETAL: No recent joint pain or swelling. ALLERGY/IMMUNOLOGY: As mentioned above. Medications/Allergies Home Medications Medication Instructions Recorded Confirmed Last Taken Type No Known Home Medications 07/27/23 07/27/23 Unknown History Allergies Allergy/AdvReac Type Severity Reaction Status Date / Time No Known Allergies Allergy Verified 07/26/23 07:14 Current Medications Generic Name Dose Route Start Last Admin Trade Name Pearl PRN Reason Stop Dose Admin Aspirin 81 mg 07/27/23 09:00 07/27/23 08:18 Aspirin 81 Mg Ec Tablet PO 81 mg DAILY DEANDRE Administration Atorvastatin Calcium 40 mg 07/26/23 21:00 07/26/23 20:19 Atorvastatin 40 Mg Tablet PO 40 mg BEDTIME DEANDRE Administration Clopidogrel Bisulfate 75 mg 07/26/23 12:50 07/27/23 08:18 Clopidogrel 75 Mg Tablet PO 75 mg DAILY DEANDRE Administration PFSH Acute 2 PFSH: Family History Mother Diabetes Other CAD (coronary artery disease) Cancer Hypertension Social History Smoking and tobacco/nicotine status: current every day tobacco/nicotine user cigarettes Packs smoked per day: 1 Second hand smoke exposure: No Alcohol intake: current Alcohol intake frequency: holidays/special occasions only Substance/Drug Use: never Adopted: No Caregiver/support person: No Lives independently: Yes Marital status: Single Number of children: 2 service: No Current occupational status: employed Current occupational exposures/hazards: No Pets and animals: No Do you think of yourself as: Straight/Heterosexual Current gender identity: Female Female Reproductive History: Spontaneous abortions: No Vitals/I&O/Wt Last Vital Signs Temp 97.5 F L 07/27/23 15:22 Pulse 68 07/27/23 15:22 Resp 18 07/27/23 15:22 BP 146/68 07/27/23 15:22 Pulse Ox 97 07/27/23 15:22 O2 Del Method Room Air 07/27/23 15:22 07/27/23 07/27/23 07/27/23 06:59 14:59 22:59 Intake Total 995 / 2235 480 / 480 Output Total 1800 / 1800 1500 / 1500 Balance -805 / 435 480 / 480 -1500 / -1020 Weight last 48 hrs Weight 191 lb 9.6 oz Weight 182 lb 4.8 oz Weight 178 lb Physical Exam 2 Narrative: GENERAL: The patient is alert and oriented times three. Not in any acute distress. HEENT: No significant pallor, icterus or lymphadenopathy.Oral cavity: There are no mucous membrane lesions. NECK: Trachea appears to be central. No masses noted. No JVD or thyromegaly appreciated. Carotid bruit bilaterally. RESPIRATORY: Chest is symmetrical. No intercostals muscle retraction or any accessory muscle activation. There is no chest wall tenderness. Breath sounds are heard bilaterally. No rales or rhonchi heard. No evidence of any consolidation. BREASTS: Deferred. HEART: The heart sounds are normal. No S3 or S4. No significant murmurs. No pericardial rub ABDOMEN: No vessel pulsations or distention. No tenderness. No organomegaly appreciated. Bowel sounds are normally heard. : Deferred. RECTAL: Deferred. LYMPHATIC: No lymphadenopathy noted in the neck. EXTREMITIES: No edema or cyanosis. No clubbing. MUSCULOSKELETAL: No acute joint deformities or swelling SKIN: There are no significant rashes or ecchymosis NEUROPSYCHIATRIC: Her speech is somewhat slow. Minimal motor weakness of the left upper and lower extremity. Slight impairment of the hand coordination on the left side. Urinary Catheter Management: Henry: Cath Placed During This Visit: no Reason for Continuing Indwelling Catheter: Other Data 07/26/23 08:02 07/26/23 08:02 Other Labs: Laboratory Last Values WBC 12.19 10^3/uL (3.29-11.43) H 07/26/23 08:02 Corrected WBC Cancelled 07/26/23 06:37 RBC 3.40 10^6/uL (3.85-5.65) L 07/26/23 08:02 Hgb 12.70 g/dL (11.27-16.99) 07/26/23 08:02 Hct 34.3 % (36-47) L 07/26/23 08:02 MCV 100.9 fl (85-98) H 07/26/23 08:02 MCH 37.4 pg (27-33) H 07/26/23 08:02 MCHC 37.0 g/dL (30-55) 07/26/23 08:02 RDW 17.5 % (12.1-15.1) H 07/26/23 08:02 Plt Count 330 10^3/cmm (157-399) 07/26/23 08:02 MPV 9.8 fL (7.4-10.4) 07/26/23 08:02 Gran % Cancelled 07/26/23 06:37 Neut % (Auto) 75.5 % 07/26/23 08:02 Lymph % (Auto) 16.3 % 07/26/23 08:02 Nash % (Auto) 6.4 % 07/26/23 08:02 Eos % (Auto) 0.7 % 07/26/23 08:02 Baso % (Auto) 0.4 % 07/26/23 08:02 Neut # (Auto) 9.19 10^3/uL (1.8-7.7) H 07/26/23 08:02 Lymph # (Auto) 2.0 10^3/uL (0.8-4.8) 07/26/23 08:02 Nash # (Auto) 0.8 10^3/uL (0.2-0.9) 07/26/23 08:02 Eos # (Auto) 0.1 10^3/uL (0.0-0.8) 07/26/23 08:02 Baso # (Auto) 0.1 10^3/uL (0.0-0.1) 07/26/23 08:02 Absolute Gran (auto) Cancelled 07/26/23 06:37 Nucleated RBC % (auto) 0 % 07/26/23 08:02 Nucleated RBCs # 0.0 /100WBC 07/26/23 08:02 PT 12.70 SECONDS (12.1-14.9) 07/26/23 06:37 INR 0.93 (0.8-1.2) 07/26/23 06:37 APTT 25.6 SECONDS (23.9-36.7) 07/26/23 06:37 Sodium 133 mmol/L (136-145) L 07/26/23 08:02 Potassium 4.2 mmol/L (3.5-5.1) 07/26/23 08:02 Chloride 101 mmol/L (98-107) 07/26/23 08:02 Carbon Dioxide 21 mmol/L (22-29) L 07/26/23 08:02 Anion Gap 15.2 (5-19) 07/26/23 08:02 BUN 13 mg/dL (8-23) 07/26/23 08:02 Creatinine 0.7 mg/dL (0.5-0.9) 07/26/23 08:02 GFR Calculation 83.7 mL/min (90-130) L 07/26/23 08:02 Glucose 126 mg/dL (65-115) H 07/26/23 08:02 POC Glucose 147 mg/dL (70-110) H 07/26/23 07:15 Estimat Average Glucose 114 07/26/23 08:02 Hemoglobin A1c 5.6 % (4.0-6.0) 07/26/23 08:02 Calculated Osmolality 278 mOsm/kg (285-295) L 07/26/23 08:02 Calcium 9.2 mg/dL (8.5-10.5) 07/26/23 08:02 Total Bilirubin 0.9 mg/dL (0.15-1.2) 07/26/23 08:02 AST 18 U/L (0-32) 07/26/23 08:02 ALT 12 U/L (0-33) 07/26/23 08:02 Alkaline Phosphatase 108 U/L (35-105) H 07/26/23 08:02 Troponin T Baseline 95 ng/L (0-10) H 07/26/23 06:37 Troponin T 120 Minute 99.41 ng/L (0-10) H 07/26/23 08:02 Delta Troponin T 4.41 ABS# (0-10) 07/26/23 08:02 Troponin T Hi Sens 6Hr 92.43 ng/L (0-10) H 07/26/23 12:21 Troponin T Hi Sens 6Hr Delta -2.57 ng/L (0-12) L 07/26/23 12:21 Total Protein 6.9 g/dL (6.6-8.7) 07/26/23 08:02 Albumin 4.0 g/dL (3.5-5.2) 07/26/23 08:02 Globulin 2.9 g/dL (1.3-4.6) 07/26/23 08:02 Triglycerides 74 mg/dL (0-150) 07/26/23 08:02 Cholesterol 220 mg/dL (0-200) H 07/26/23 08:02 LDL Cholesterol, Calc 158 mg/dL (50-129) H 07/26/23 08:02 HDL Cholesterol 47 mg/dL (60-100) L 07/26/23 08:02 LDL/HDL Ratio 3.36 RATIO (0.00-3.22) H 07/26/23 08:02 Cholesterol/HDL Ratio 4.68 mg/dL (0.0-4.40) H 07/26/23 08:02 Urine Color Yellow (Yellow) 07/26/23 10:59 Urine Appearance Clear (CLEAR) 07/26/23 10:59 Urine pH 6.5 (5-7) 07/26/23 10:59 Ur Specific [place] 1.005 (1.005-1.030) 07/26/23 10:59 Urine Protein Trace (Negative) 07/26/23 10:59 Urine Glucose (UA) Norm (Normal) 07/26/23 10:59 Urine Ketones Negative (Negative) 07/26/23 10:59 Urine Blood 2+ (Negative) H 07/26/23 10:59 Urine Nitrate Negative (Negative) 07/26/23 10:59 Urine Bilirubin Neg (Negative) 07/26/23 10:59 Urine Urobilinogen 1 mg/dL (Negative) H 07/26/23 10:59 Ur Leukocyte Esterase Negative (Negative) 07/26/23 10:59 Urine RBC 0-4 /hpf (0-2) H 07/26/23 10:59 Urine WBC 0-4 /hpf (0-5) H 07/26/23 10:59 Ur Squamous Epith Cells 0-4 /hpf (0-5) H 07/26/23 10:59 Amorphous Sediment Not Reportable 07/26/23 10:59 Urine Bacteria 1+ /hpf (NONE) H 07/26/23 10:59 Urine Mucus Trace /hpf 07/26/23 10:59 Urine Opiates Screen Negative ng/mL (Negative) 07/26/23 10:59 Ur Barbiturates Screen Negative ng/mL (Negative) 07/26/23 10:59 Ur Phencyclidine Scrn Negative ng/mL (Negative) 07/26/23 10:59 Ur Amphetamines Screen Negative ng/mL (Negative) 07/26/23 10:59 U Benzodiazepines Scrn Negative ng/mL (Negative) 07/26/23 10:59 Urine Cocaine Screen Negative ng/mL (Negative) 07/26/23 10:59 U Marijuana (THC) Screen Negative ng/mL (Negative) 07/26/23 10:59 Ethyl Alcohol < 10 mg/dL (0-10) 07/26/23 08:02 Other data: EKG on 07/26/[address] elevation in T inversions in the anterolateral leads and inferior leads. No ST depressions. Echocardiogram on 07/27/2023 severe diffuse hypokinesis of the LV apex. LV ejection fraction around 49%. Features of apical ballooning, may suggest Takotsubo Mmild left ventricular hypertrophy. Grade I/IV diastolic dysfunction (abnormal relaxation filling pattern), normal to mildly elevated filling pressures. Mildly increased left atrial size. Mild mitral annular calcification. Thickened aortic valve. There is no pericardial effusion. There are no intracardiac masses. CT of the head and neck 1. No significant cervical carotid artery stenosis. 2. Increasing plaque through the cavernous portions of the intracranial carotid arteries. Stenosis greater than 60%, greatest in the supraclinoid carotid arteries and greater on the RIGHT. 3. No thrombus identified in the middle cerebral arteries. 4. There may be very slight paucity of vessels in the distal RIGHT MCA. There is mild displacement of the vessels related to the evolving infarct in the parietal lobe. No similar previous studies are available for comparison A&P Assessment and plan (1) Cardiomyopathy: This could be related to Takotsubo syndrome. However in view of the multiple risk factors, possibility of her having underlying coronary artery disease causing myocardial infarction/ischemia also is a consideration. However the patient is totally asymptomatic Qualifiers: Cardiomyopathy type: other Qualified Code(s): I42.8 - Other cardiomyopathies (2) Nicotine dependence, cigarettes, with unspecified nicotine-induced disorders: Strongly advised to quit smoking (3) Abnormal EKG: The ST-T changes suggesting anterolateral bright/inferior wall injury, most likely stroke related. However in view of the carotid artery disease and multiple risk factors, possibility of underlying coronary disease is a strong consideration. I may go ahead and do a repeat EKG to follow-up on these changes. (4) Elevated troponin: As mentioned above (5) Dyslipidemia: Patient is on statin Plan For further evaluation of the patient's coronary status, a Myocardial perfusion imaging would be appropriate. This was discussed with the patient detail which is understood well. I may go ahead and schedule her for a Lexiscan/sestamibi/sestamibi stress test. Based on the results, further recommendations will be made. May continue on the current medication for the time being Patient needs to be closely monitored on telemetry. Consult Attestations 2 Medical Necessity Statement: Patient requires continued hospital stay for close monitoring and further management Coding Level of Care Code 15573 Diagnoses Other cardiomyopathy I42.8 Cardiomyopathy type: other Nicotine dependence, cigarettes, with unspecified nicotine-induced disorders F17.219 Abnormal EKG R94.31 Elevated troponin R79.89 Dyslipidemia E78.5
[2023-07-27] MEDS: atorvastatin 40 mg Tablet PO (20:21)
--- NOTE | 2023-07-28 | ECG_ITS ---
[facility] Test Date: 2023-07-28 Pat Name: Michelle Lopez Department: Room: 273 Gender: Female Desktop [employer] Specialist: Torreymaria isabel Walshid : [id number] Requested By: Francine Grider Order Number: [id number] Amos MD: Salena Hunter M.D. Interpretive Statements NAME OF STUDY: LEXISCAN SESTAMIBI STRESS TEST INDICATION: Abnormal trop, echo, PROCEDURE: At the baseline, the EKG revealed ST elevation in 2 inversions in lead V2 to V6 and II, [address]VF[address] Some nonspecific [address]-T changes in leads 1 and aVL. The baseline heart was 61 bpm with a blood pressue of 118/61 mm of Hg Lexiscan was infused over a period of 20 seconds. A total of 0.4 milligrams of Lexiscan was infused. The stress phase was continued for a total of 5 minutes. Heart rate at the end of the stress phase was 85 bpm with a blood pressure 115/61 mm of Hg. The EKG at the peak infusion revealed no significant changes. Sestamibi was injected 20 seconds after the Lexiscan infusion. Heart rate at the end of the recovery phase was 82 bpm with a blood pressure of 115/50 mm of Hg. CONCLUSION: 1. No significant EKG changes with the LexiScan infusion 2. No LexiScan induced chest pain or cardiac arrhythmia 3. Normal blood pressure and heart rate response 4. Sestamibi/sestamibi perfusion scan pending; see separate report. Electronically Signed On 07-30-2023 9:51:55 TEST LAB TECHNICIAN by Salena Hunter M.D. [email or web address]
[2023-07-28 04:00] VITALS: BP 138/74; PULSE 77; RESP 18; TEMP 37.7; O2SAT 93
[2023-07-28 06:05] VITALS: BMI 32.8
[2023-07-28] MEDS: regadenoson 0.4 Mg/5 ml Syringe IVP (07:24)
[2023-07-28 07:41] VITALS: BP 111/50; PULSE 81
--- NOTE | 2023-07-28 08:00 | NMCV_ITS ---
NM calvin perf SPECT r/s* [id number] Michelle Lopez Age: 68 Gender: F : 1955 Exam Date: 07/28/2023 06:34 Ordering Phys: Francine Grider MD Technologist: DARSHAN Baca Exam Location: [facility] Indications: CHEST PAIN STRESS TEST Please see separate stress test report in [facility] for full findings IMAGE PROTOCOL Rest/Stress 1 Lexiscan Day Radiopharmaceutical Dose (mCi) Administration Site Administered by Rest: Tc-99m 10.8 IV DARSHAN Chau Sestamibi Stress:Tc-99m 32.6 IV DARSHAN Chau Sestamibi Rest: 28-Jul-2023 60 Discovery 630 Stress: 28-Jul-2023 30 Discovery 630 0.4mg Lexiscan. Images obtained in supine and prone position. SPECT RESULTS Technical Quality: Excellent Raw Data Analysis: Normal Image Corrections: No attenuation or motion correction applied Summed Stress Score: 16 Summed Rest Score: 15 Summed Difference Score: 3 PERFUSION FINDINGS Moderate area of moderate to severely decreased tracer uptake involving the mid and apical inferior, mid inferolateral, apical lateral, apical anterior, apical septal and LV apex. Some reversibility was noted in the mid inferior and apical septal regions. FUNCTIONAL RESULTS (calculated via Gated SPECT) Stress Image LV EF (%): 66 Stress EDV (mL):90 TID: 0.86 Stress ESV (mL):31 FUNCTIONAL FINDINGS: IMPRESSIONS 1. Myocardial perfusion imaging revealing moderate area of persistent decreased tracer uptake involving the inferior, inferolateral and apical regions with elevated small areas of reversible defect involving the mid inferior and apical septal regions suggesting myocardial scarring with small areas of monica-infarction ischemia in the inferior and apical regions, suggesting myocardial scarring with small areas of ischemia in the distribution of the right coronary artery/circumflex artery. 2. Normal LV ejection fraction 66% 3. LV wall motion analysis revealing severe hypokinesis of the LV apex. 4. Normal LV volume No similar previous studies are available for comparison Dr Salena Hunter MD FAC (Electronically Signed) Final Date: 28 July 2023 11:18 S
[2023-07-28] MEDS: aspirin 81 mg EC Tablet PO (08:58)
[2023-07-28] MEDS: clopidogrel 75 mg Tablet PO (08:58)
[2023-07-28 11:44] VITALS: BP 137/75; PULSE 72; RESP 18; TEMP 36.6; O2SAT 95
--- NOTE | 2023-07-28 12:27 | P.PN_ITS ---
Subjective 2 Subjective: Patient had a Myocardial perfusion imaging today. Was found to have a small to moderate area of fixed defect with a small area of reversible defect in the distribution of the left circumflex/right coronary artery. Medications: Medication Review Details: Current Medications Acetaminophen (Acetaminophen 325 Mg Tablet) 650 mg PO Q6H PRN PRN Reason: Mild/Mod Pain Or Temp >/= 101 Aminophylline (Aminophylline 25 Mg/Ml Sdv 10 Ml) 25 mg IVP Q2M PRN PRN Reason: see dose instructions Stop: 07/29/23 06:13 Aspirin (Aspirin 81 Mg Ec Tablet) 81 mg PO DAILY FOR[facility] Last Admin: 07/28/23 08:58 Dose: 81 mg Atorvastatin Calcium (Atorvastatin 40 Mg Tablet) 40 mg PO BEDTIME [facility] Last Admin: 07/27/23 20:21 Dose: 40 mg Clopidogrel Bisulfate (Clopidogrel 75 Mg Tablet) 75 mg PO DAILY [facility] Last Admin: 07/28/23 08:58 Dose: 75 mg Nitroglycerin (Nitroglycerin 0.4 Mg Sublingual Tablet) 0.4 mg SUBLINGUAL Q5M PRN PRN Reason: CHEST PAIN Stop: 07/29/23 06:13 Ondansetron HCl (Ondansetron 2 Mg/Ml Sdv 2 Ml) 4 mg IVP Q6H PRN PRN Reason: NAUSEA AND VOMITING Ondansetron HCl (Ondansetron 2 Mg/Ml Sdv 2 Ml) 4 mg IVP Q2M PRN PRN Reason: NAUSEA Vitals/I&O/Wt Last Vital Signs Temp 97.8 F 07/28/23 11:44 Pulse 72 07/28/23 11:44 Resp 18 07/28/23 11:44 BP 137/75 07/28/23 11:44 Pulse Ox 95 07/28/23 11:44 O2 Del Method Room Air 07/28/23 11:44 07/27/23 07/28/23 07/28/23 22:59 06:59 14:59 Intake Total 580 / 1060 120 / 1180 Output Total 1500 / 1500 Balance -920 / -440 120 / -320 Weight last 48 hrs Weight 191 lb 8 oz Weight 191 lb 9.6 oz Weight 182 lb 4.8 oz Physical Exam 2 Narrative: GENERAL: The patient is alert and oriented times three. Not in any acute distress. HEENT: No significant pallor, icterus or lymphadenopathy.Oral cavity: There are no mucous membrane lesions. NECK: Trachea appears to be central. No masses noted. No JVD or thyromegaly appreciated. Carotid bruit bilaterally. RESPIRATORY: Chest is symmetrical. No intercostals muscle retraction or any accessory muscle activation. There is no chest wall tenderness. Breath sounds are heard bilaterally. No rales or rhonchi heard. No evidence of any consolidation. BREASTS: Deferred. HEART: The heart sounds are normal. No S3 or S4. No significant murmurs. No pericardial rub ABDOMEN: No vessel pulsations or distention. No tenderness. No organomegaly appreciated. Bowel sounds are normally heard. : Deferred. RECTAL: Deferred. LYMPHATIC: No lymphadenopathy noted in the neck. EXTREMITIES: No edema or cyanosis. No clubbing. MUSCULOSKELETAL: No acute joint deformities or swelling SKIN: There are no significant rashes or ecchymosis NEUROPSYCHIATRIC: Her speech is somewhat slow. Minimal motor weakness of the left upper and lower extremity. Slight impairment of the hand coordination on the left side. Urinary Catheter Management: Henry: Cath Placed During This Visit: no Reason for Continuing Indwelling Catheter: Other Data 07/26/23 08:02 07/26/23 08:02 Other Labs: Laboratory Last Values WBC 12.19 10^3/uL (3.29-11.43) H 07/26/23 08:02 Corrected WBC Cancelled 07/26/23 06:37 RBC 3.40 10^6/uL (3.85-5.65) L 07/26/23 08:02 Hgb 12.70 g/dL (11.27-16.99) 07/26/23 08:02 Hct 34.3 % (36-47) L 07/26/23 08:02 MCV 100.9 fl (85-98) H 07/26/23 08:02 MCH 37.4 pg (27-33) H 07/26/23 08:02 MCHC 37.0 g/dL (30-55) 07/26/23 08:02 RDW 17.5 % (12.1-15.1) H 07/26/23 08:02 Plt Count 330 10^3/cmm (157-399) 07/26/23 08:02 MPV 9.8 fL (7.4-10.4) 07/26/23 08:02 Gran % Cancelled 07/26/23 06:37 Neut % (Auto) 75.5 % 07/26/23 08:02 Lymph % (Auto) 16.3 % 07/26/23 08:02 [place] % (Auto) 6.4 % 07/26/23 08:02 Eos % (Auto) 0.7 % 07/26/23 08:02 Baso % (Auto) 0.4 % 07/26/23 08:02 Neut # (Auto) 9.19 10^3/uL (1.8-7.7) H 07/26/23 08:02 Lymph # (Auto) 2.0 10^3/uL (0.8-4.8) 07/26/23 08:02 [place] # (Auto) 0.8 10^3/uL (0.2-0.9) 07/26/23 08:02 Eos # (Auto) 0.1 10^3/uL (0.0-0.8) 07/26/23 08:02 Baso # (Auto) 0.1 10^3/uL (0.0-0.1) 07/26/23 08:02 Absolute Gran (auto) Cancelled 07/26/23 06:37 Nucleated RBC % (auto) 0 % 07/26/23 08:02 Nucleated RBCs # 0.0 /100WBC 07/26/23 08:02 PT 12.70 SECONDS (12.1-14.9) 07/26/23 06:37 INR 0.93 (0.8-1.2) 07/26/23 06:37 APTT 25.6 SECONDS (23.9-36.7) 07/26/23 06:37 Sodium 133 mmol/L (136-145) L 07/26/23 08:02 Potassium 4.2 mmol/L (3.5-5.1) 07/26/23 08:02 Chloride 101 mmol/L (98-107) 07/26/23 08:02 Carbon Dioxide 21 mmol/L (22-29) L 07/26/23 08:02 Anion Gap 15.2 (5-19) 07/26/23 08:02 BUN 13 mg/dL (8-23) 07/26/23 08:02 Creatinine 0.7 mg/dL (0.5-0.9) 07/26/23 08:02 GFR Calculation 83.7 mL/min (90-130) L 07/26/23 08:02 Glucose 126 mg/dL (65-115) H 07/26/23 08:02 POC Glucose 147 mg/dL (70-110) H 07/26/23 07:15 Estimat Average Glucose 114 07/26/23 08:02 Hemoglobin A1c 5.6 % (4.0-6.0) 07/26/23 08:02 Calculated Osmolality 278 mOsm/kg (285-295) L 07/26/23 08:02 Calcium 9.2 mg/dL (8.5-10.5) 07/26/23 08:02 Total Bilirubin 0.9 mg/dL (0.15-1.2) 07/26/23 08:02 AST 18 U/L (0-32) 07/26/23 08:02 ALT 12 U/L (0-33) 07/26/23 08:02 Alkaline Phosphatase 108 U/L (35-105) H 07/26/23 08:02 Troponin T Baseline 95 ng/L (0-10) H 07/26/23 06:37 Troponin T 120 Minute 99.41 ng/L (0-10) H 07/26/23 08:02 Delta Troponin T 4.41 ABS# (0-10) 07/26/23 08:02 Troponin T Hi Sens 6Hr 92.43 ng/L (0-10) H 07/26/23 12:21 Troponin T Hi Sens 6Hr Delta -2.57 ng/L (0-12) L 07/26/23 12:21 Total Protein 6.9 g/dL (6.6-8.7) 07/26/23 08:02 Albumin 4.0 g/dL (3.5-5.2) 07/26/23 08:02 Globulin 2.9 g/dL (1.3-4.6) 07/26/23 08:02 Triglycerides 74 mg/dL (0-150) 07/26/23 08:02 Cholesterol 220 mg/dL (0-200) H 07/26/23 08:02 LDL Cholesterol, Calc 158 mg/dL (50-129) H 07/26/23 08:02 HDL Cholesterol 47 mg/dL (60-100) L 07/26/23 08:02 LDL/HDL Ratio 3.36 RATIO (0.00-3.22) H 07/26/23 08:02 Cholesterol/HDL Ratio 4.68 mg/dL (0.0-4.40) H 07/26/23 08:02 Urine Color Yellow (Yellow) 07/26/23 10:59 Urine Appearance Clear (CLEAR) 07/26/23 10:59 Urine pH 6.5 (5-7) 07/26/23 10:59 Ur Specific [place] 1.005 (1.005-1.030) 07/26/23 10:59 Urine Protein Trace (Negative) 07/26/23 10:59 Urine Glucose (UA) Norm (Normal) 07/26/23 10:59 Urine Ketones Negative (Negative) 07/26/23 10:59 Urine Blood 2+ (Negative) H 07/26/23 10:59 Urine Nitrate Negative (Negative) 07/26/23 10:59 Urine Bilirubin Neg (Negative) 07/26/23 10:59 Urine Urobilinogen 1 mg/dL (Negative) H 07/26/23 10:59 Ur Leukocyte Esterase Negative (Negative) 07/26/23 10:59 Urine RBC 0-4 /hpf (0-2) H 07/26/23 10:59 Urine WBC 0-4 /hpf (0-5) H 07/26/23 10:59 Ur Squamous Epith Cells 0-4 /hpf (0-5) H 07/26/23 10:59 Amorphous Sediment Not Reportable 07/26/23 10:59 Urine Bacteria 1+ /hpf (NONE) H 07/26/23 10:59 Urine Mucus Trace /hpf 07/26/23 10:59 Urine Opiates Screen Negative ng/mL (Negative) 07/26/23 10:59 Ur Barbiturates Screen Negative ng/mL (Negative) 07/26/23 10:59 Ur Phencyclidine Scrn Negative ng/mL (Negative) 07/26/23 10:59 Ur Amphetamines Screen Negative ng/mL (Negative) 07/26/23 10:59 U Benzodiazepines Scrn Negative ng/mL (Negative) 07/26/23 10:59 Urine Cocaine Screen Negative ng/mL (Negative) 07/26/23 10:59 U Marijuana (THC) Screen Negative ng/mL (Negative) 07/26/23 10:59 Ethyl Alcohol < 10 mg/dL (0-10) 07/26/23 08:02 A&P Assessment and plan (1) Cardiomyopathy: This could be related to Takotsubo syndrome. Based on the perfusion scan results, patient may have underlying coronary disease. Since the area of ischemia small and also since the patient is asymptomatic, it was thought to be appropriate to continue the medical treatment at this point. If she develop anyChest pain or specific ischemic symptoms, we may consider doing a cardiac catheterization. Qualifiers: Cardiomyopathy type: other Qualified Code(s): I42.8 - Other cardiomyopathies (2) Nicotine dependence, cigarettes, with unspecified nicotine-induced disorders: Strongly advised to quit smoking (3) Abnormal EKG: (4) Elevated troponin: The EKG still shows persistent anterolateral and inferior wall injury changes. (5) Dyslipidemia: Patient is on statin Plan The patient may be continue on the Plavix, aspirin, statin and beta-justin. If she continues to remain stable, may be discharged home from a cardiac standpoint. Will be seen in the clinic in a week by the nurse practitioner. I may see her in the office in 6 weeks. Attestations 2 Medical Necessity Statement*: Disposition as per the primary Coding Level of Care Code 18366 Diagnoses Other cardiomyopathy I42.8 Cardiomyopathy type: other Nicotine dependence, cigarettes, with unspecified nicotine-induced disorders F17.219 Abnormal EKG R94.31 Elevated troponin R79.89 Dyslipidemia E78.5
--- NOTE | 2023-07-28 12:47 | PC.SOCIAL ---
IMM Update pg 2 of IMM updated and reviewed w/ patient. Copy provided and copy dated, initialed and placed in chart.
[2023-07-28 15:02] VITALS: BP 137/75; PULSE 72; RESP 18; TEMP 36.6; O2SAT 95
--- NOTE | 2023-07-28 15:13 | PM.DCS ---
Discharge Providers Date of Admission: 07/26/23 09:07 Date of Discharge: July 28, 2023 Attending Provider at Admission: Francine Grider MD Attending Provider at Discharge: Francine Grider MD Primary Care Provider: Prem Wade DO Diagnoses at Discharge Discharge Diagnosis (1) Cardiomyopathy: Status: Acute Qualifiers: Cardiomyopathy type: other Qualified Code(s): I42.8 - Other cardiomyopathies (2) Nicotine dependence, cigarettes, with unspecified nicotine-induced disorders: Status: Acute (3) Abnormal EKG: Status: Acute (4) Elevated troponin: Status: Acute (5) Dyslipidemia: Status: Acute (6) Stroke: Status: Acute Reason for Visit Reason for Visit: weakness, possible stroke Hospital Course Hospital Course Michelle Lopez is a 68 year old female with history of chronic smoking , no other known medical comorbidities presented to the hospital with stroke. She had left-sided weakness of the arm and legs, dysarthria and word finding difficulty. NIH stroke scale was [address] head with Evolving acute right opercular infarct. CTA head and neck with Increasing plaque through the cavernous portions of the intracranial carotid arteries. Stenosis greater than 60%, greatest in the supraclinoid carotid arteries and greater on the RIGHT. No thrombus identified in the middle cerebral arteries.There may be very slight paucity of vessels in the distal RIGHT MCA. There is mild displacement of the vessels related to the evolving infarct in the parietal lobe. Call placed to neuroconsult line at [facility] to discuss above findings. No acute intervention indicated at this time per discussion with neurology. Not a candidate for tPA as > 12 hrs since symptom onset at this point. Recommended to start ASA/Plavix for at least 3 months. Atorvastatin added. Hba1c screen normal. Patient was monitored on telemetry. Her EKG showed T wave inversions in the anterolateral leads. Troponins were checked which showed a trend between 92-95, downtrending. Patient denied any chest pain. An echocardiogram was performed which showed diffuse hypokinesis of the LV apex with ejection fraction of around 49%. Features were concerning for Takotsubo cardiomyopathy. She underwent a Lexiscan stress test this morning to evaluate for reversible causes of ischemia, features were more suggestive of likely nonischemic cardiomyopathy. Results were discussed with cardiology. Recommended outpatient follow-up and addition of low-dose metoprolol. 12.5 mg p.o. metoprolol was added. Patient reports her baseline heart rate is in the 60s. Instructed to keep a check on her heart rate and to take metoprolol if heart rate is greater than 65. Follow-up with neurology and cardiology services as outpatient. Physical Exam Narrative: General: No acute distress, AO x3 HEENT: PERRLA, pupils bilaterally equal and reactive, pallors not present Chest: Normal vesicular breath sounds, no added sounds, equal good air entry bilaterally CVS: S1-S2 regular, no murmurs, no tachycardia, no gallops, no rubs Abdomen: Soft, nontender, no organomegaly, bowel sounds present Neuro: No focal deficits, no facial deformity, AO x3, power 5/5 in all limbs Urinary Catheter Management: Henry: Cath Placed During This Visit: no Reason for Continuing Indwelling Catheter: Other Discharge Data Studies Completed and Pending Completed Studies During Hospitalization Category Date Time Status CT head thrombolytic 60636 Stat Cat Scan 07/26/23 07:06 Completed CTA head neck [CT angio headneck* [id number]] Stat Cat Scan 07/26/23 07:21 Completed Cardiac Stress Test MIBI [Sestamibi Stress Test Request Exams 07/28/23 08:22 Draft ] Routine NM calvin perf SPECT r/s* [id number] Routine Nuc Med 07/28/23 08:00 Completed CV. echo complete* [id number] Routine Ultrasound 07/26/23 16:06 Completed Radiology Impressions Head CT 07/26/23 07:06 IMPRESSION: Evolving acute right opercular infarct. ASSESSMENT: ASPECTS (Staci Stroke Program Early CT Score) is 9. THIS REPORT CONTAINS FINDINGS THAT MAY BE CRITICAL TO PATIENT CARE. The findings were verbally communicated via telephone conference with HUGH PRADHAN at 7:21 AM MACHINIST GENER[employer] on 07/26/2023. The findings were acknowledged and understood. Laboratory Results WBC 12.19 10^3/uL (3.29-11.43) H 07/26/23 08:02 Corrected WBC Cancelled 07/26/23 06:37 RBC 3.40 10^6/uL (3.85-5.65) L 07/26/23 08:02 Hgb 12.70 g/dL (11.27-16.99) 07/26/23 08:02 Hct 34.3 % (36-47) L 07/26/23 08:02 MCV 100.9 fl (85-98) H 07/26/23 08:02 MCH 37.4 pg (27-33) H 07/26/23 08:02 MCHC 37.0 g/dL (30-55) 07/26/23 08:02 RDW 17.5 % (12.1-15.1) H 07/26/23 08:02 Plt Count 330 10^3/cmm (157-399) 07/26/23 08:02 MPV 9.8 fL (7.4-10.4) 07/26/23 08:02 Gran % Cancelled 07/26/23 06:37 Neut % (Auto) 75.5 % 07/26/23 08:02 Lymph % (Auto) 16.3 % 07/26/23 08:02 [place] % (Auto) 6.4 % 07/26/23 08:02 Eos % (Auto) 0.7 % 07/26/23 08:02 Baso % (Auto) 0.4 % 07/26/23 08:02 Neut # (Auto) 9.19 10^3/uL (1.8-7.7) H 07/26/23 08:02 Lymph # (Auto) 2.0 10^3/uL (0.8-4.8) 07/26/23 08:02 [place] # (Auto) 0.8 10^3/uL (0.2-0.9) 07/26/23 08:02 Eos # (Auto) 0.1 10^3/uL (0.0-0.8) 07/26/23 08:02 Baso # (Auto) 0.1 10^3/uL (0.0-0.1) 07/26/23 08:02 Absolute Gran (auto) Cancelled 07/26/23 06:37 Nucleated RBC % (auto) 0 % 07/26/23 08:02 Nucleated RBCs # 0.0 /100WBC 07/26/23 08:02 PT 12.70 SECONDS (12.1-14.9) 07/26/23 06:37 INR 0.93 (0.8-1.2) 07/26/23 06:37 APTT 25.6 SECONDS (23.9-36.7) 07/26/23 06:37 Sodium 133 mmol/L (136-145) L 07/26/23 08:02 Potassium 4.2 mmol/L (3.5-5.1) 07/26/23 08:02 Chloride 101 mmol/L (98-107) 07/26/23 08:02 Carbon Dioxide 21 mmol/L (22-29) L 07/26/23 08:02 Anion Gap 15.2 (5-19) 07/26/23 08:02 BUN 13 mg/dL (8-23) 07/26/23 08:02 Creatinine 0.7 mg/dL (0.5-0.9) 07/26/23 08:02 GFR Calculation 83.7 mL/min (90-130) L 07/26/23 08:02 Glucose 126 mg/dL (65-115) H 07/26/23 08:02 POC Glucose 147 mg/dL (70-110) H 07/26/23 07:15 Estimat Average Glucose 114 07/26/23 08:02 Hemoglobin A1c 5.6 % (4.0-6.0) 07/26/23 08:02 Calculated Osmolality 278 mOsm/kg (285-295) L 07/26/23 08:02 Calcium 9.2 mg/dL (8.5-10.5) 07/26/23 08:02 Total Bilirubin 0.9 mg/dL (0.15-1.2) 07/26/23 08:02 AST 18 U/L (0-32) 07/26/23 08:02 ALT 12 U/L (0-33) 07/26/23 08:02 Alkaline Phosphatase 108 U/L (35-105) H 07/26/23 08:02 Troponin T Baseline 95 ng/L (0-10) H 07/26/23 06:37 Troponin T 120 Minute 99.41 ng/L (0-10) H 07/26/23 08:02 Delta Troponin T 4.41 ABS# (0-10) 07/26/23 08:02 Troponin T Hi Sens 6Hr 92.43 ng/L (0-10) H 07/26/23 12:21 Troponin T Hi Sens 6Hr Delta -2.57 ng/L (0-12) L 07/26/23 12:21 Total Protein 6.9 g/dL (6.6-8.7) 07/26/23 08:02 Albumin 4.0 g/dL (3.5-5.2) 07/26/23 08:02 Globulin 2.9 g/dL (1.3-4.6) 07/26/23 08:02 Triglycerides 74 mg/dL (0-150) 07/26/23 08:02 Cholesterol 220 mg/dL (0-200) H 07/26/23 08:02 LDL Cholesterol, Calc 158 mg/dL (50-129) H 07/26/23 08:02 HDL Cholesterol 47 mg/dL (60-100) L 07/26/23 08:02 LDL/HDL Ratio 3.36 RATIO (0.00-3.22) H 07/26/23 08:02 Cholesterol/HDL Ratio 4.68 mg/dL (0.0-4.40) H 07/26/23 08:02 Urine Color Yellow (Yellow) 07/26/23 10:59 Urine Appearance Clear (CLEAR) 07/26/23 10:59 Urine pH 6.5 (5-7) 07/26/23 10:59 Ur Specific [place] 1.005 (1.005-1.030) 07/26/23 10:59 Urine Protein Trace (Negative) 07/26/23 10:59 Urine Glucose (UA) Norm (Normal) 07/26/23 10:59 Urine Ketones Negative (Negative) 07/26/23 10:59 Urine Blood 2+ (Negative) H 07/26/23 10:59 Urine Nitrate Negative (Negative) 07/26/23 10:59 Urine Bilirubin Neg (Negative) 07/26/23 10:59 Urine Urobilinogen 1 mg/dL (Negative) H 07/26/23 10:59 Ur Leukocyte Esterase Negative (Negative) 07/26/23 10:59 Urine RBC 0-4 /hpf (0-2) H 07/26/23 10:59 Urine WBC 0-4 /hpf (0-5) H 07/26/23 10:59 Ur Squamous Epith Cells 0-4 /hpf (0-5) H 07/26/23 10:59 Amorphous Sediment Not Reportable 07/26/23 10:59 Urine Bacteria 1+ /hpf (NONE) H 07/26/23 10:59 Urine Mucus Trace /hpf 07/26/23 10:59 Urine Opiates Screen Negative ng/mL (Negative) 07/26/23 10:59 Ur Barbiturates Screen Negative ng/mL (Negative) 07/26/23 10:59 Ur Phencyclidine Scrn Negative ng/mL (Negative) 07/26/23 10:59 Ur Amphetamines Screen Negative ng/mL (Negative) 07/26/23 10:59 U Benzodiazepines Scrn Negative ng/mL (Negative) 07/26/23 10:59 Urine Cocaine Screen Negative ng/mL (Negative) 07/26/23 10:59 U Marijuana (THC) Screen Negative ng/mL (Negative) 07/26/23 10:59 Ethyl Alcohol < 10 mg/dL (0-10) 07/26/23 08:02 Vitals Last Vital Signs Temp 97.8 F 07/28/23 15:02 Pulse 72 07/28/23 15:02 Resp 18 07/28/23 15:02 BP 137/75 07/28/23 15:02 Pulse Ox 95 07/28/23 15:02 O2 Del Method Room Air 07/28/23 11:44 Discharge Plan Discharge Patient Disposition: Home Health Service Condition: Stable Prescriptions: New atorvastatin 40 mg Tablet 40 mg PO BEDTIME 30 Days Qty: 30 0RF clopidogrel 75 mg Tablet 75 mg PO DAILY 30 Days Qty: 30 0RF aspirin 81 mg Tablet,Delayed Release (Dr/Ec) 81 mg PO DAILY 30 Days Qty: 30 0RF metoprolol tartrate 25 mg tablet 12.5 mg PO DAILY 30 Days Qty: 30 0RF Discharge Orders: Discharge Order (Routine); Ordered 07/28/23 Ordered By: Francine Grider Other Ambulatory Orders: DME: Walker (Order) Location: None Selected Ordered By: Francine Grider Referrals: [facility] [Other] Prem Wade DO [Primary Care Provider] - 08/04/23 10:00 am (You have an appointment to see Dr. Wade on Aug 04 at 1000. ) Patric Figueroa MD [Physician] - 07/29/23 (We have notified your physician's clinic of the need for a follow-up appointment to be scheduled. If you have not heard from them within the next 2 business days, please call them directly. ) Salena Hunter MD [Physician] - 2 weeks (We have notified your physician's clinic of the need for a follow-up appointment to be scheduled. If you have not heard from them within the next 2 business days, please call them directly. ) Discharge Diet: Usual diet Discharge Activity: Resume usual activity Patient Instructions: Metoprolol (By mouth), Aspirin (By mouth), Atorvastatin (By mouth) (Lipitor, Atorvaliq), Clopidogrel (By mouth) (Plavix), How to Stop Smoking (DC), Cigarette Smoking and Your Health (GEN), Self Care Measures After a Stroke (DC), Opioid Safety, Stroke Stoplight Discharge Attestations Time Spent in Discharge Care*: greater than 30 min Quality Metrics Clinical Quality Measures [ No reported AMI, CVA or VTE this stay] Coding Level of Care Code Acute Code for Chg Fwd Diagnoses Other cardiomyopathy I42.8 Cardiomyopathy type: other Nicotine dependence, cigarettes, with unspecified nicotine-induced disorders F17.219 Abnormal EKG R94.31 Elevated troponin R79.89 Dyslipidemia E78.5 Stroke I63.9
== END 2023-07-28 15:12 | disposition home health service (06) | DRG 65 ==
LOC: ER 09:14 → ER IP 09:26 → MEDSURG 14:33
PROVIDERS: Admitting Provider Student in an Organized Health Care Education/Training Program; Emergency Provider Family Medicine; PCP Family Medicine; Visit Provider Student in an Organized Health Care Education/Training Program
DX: I63.89 Other cerebral infarction (principal); G81.94 Hemiplegia, unspecified affecting left nondominant side; I42.8 Other cardiomyopathies; R47.01 Aphasia; R27.0 Ataxia, unspecified; I65.21 Occlusion and stenosis of right carotid artery; F17.210 Nicotine dependence, cigarettes, uncomplicated; R79.89 Other specified abnormal findings of blood chemistry; E78.5 Hyperlipidemia, unspecified; Z79.82 Long term (current) use of aspirin; Z82.49 Family history of ischemic heart disease and other diseases of the circulatory system
CPT/HCPCS: 36415; 36416; 51702; 70450; 70496; 70498; 78452; 80053; 80061; 80306; 80307; 81001; 82962; 83036; 84484; 85025; 85610; 85730; 92507; 92523; 92610; 93005; 93306; 96375; 97116; 97162; 97166; 97535; 99285; A9500; J2785; J7030; Q9967

== ENCOUNTER → 2023-07-29 14:37 | Outpatient (BNVA) | payer MEDICARE, OTHER, SELFPAY | PROVIDERS: PCP Family Medicine; Visit Provider Specialist | DX: I63.511 Cerebral infarction due to unspecified occlusion or stenosis of right middle cerebral artery (principal); I42.8 Other cardiomyopathies; Z72.0 Tobacco use; Z71.6 Tobacco abuse counseling; Z79.82 Long term (current) use of aspirin; Z79.02 Long term (current) use of antithrombotics/antiplatelets | CPT/HCPCS: 99205 ==

== ENCOUNTER → 2023-08-11 13:18 | Outpatient (BNVA) | payer MEDICARE, OTHER, SELFPAY | PROVIDERS: PCP Family Medicine; Visit Provider Nurse Practitioner Family | DX: I51.81 Takotsubo syndrome (principal); F17.210 Nicotine dependence, cigarettes, uncomplicated | CPT/HCPCS: 99213 ==

== ENCOUNTER 2023-08-30 12:35 | Outpatient (CLI) | payer MEDICARE, OTHER, SELFPAY ==
[2023-08-30 14:27] LABS: Vitamin B12 1596 pg/mL (232-1245)
== END 2023-08-30 12:36 | disposition home or self-care (01) ==
LOC: LAB 12:36
PROVIDERS: PCP Family Medicine; Visit Provider Specialist
DX: I63.511 Cerebral infarction due to unspecified occlusion or stenosis of right middle cerebral artery (principal); I42.8 Other cardiomyopathies
CPT/HCPCS: 36415; 82607

== ENCOUNTER 2023-09-08 12:11 | Outpatient (CLI) | payer MEDICARE, OTHER, SELFPAY ==
--- NOTE | 2023-09-08 12:15 | MR_ITS ---
WS: [email or web address] MRI BRAIN WITHOUT CONTRAST HISTORY: Recent CVA COMPARISON: None available. TECHNIQUE: Diffusion imaging, multiplanar T1, T2 and FLAIR imaging obtained. No acute infarct. Recent infarct in the RIGHT parietal frontal lobe is identified with T2 shine throu gh. On the susceptibility imaging there is evidence for hemosiderin and prior hemorrhage. No new or a dditional infarcts. Otherwise mild small vessel ischemic disease. No remote or acute infarcts are volume loss. Ventricles and extra-axial spaces are normal. No inferior displacement of cerebellar tonsils. The sella turcica and pituitary gland are unremarkabl e. Dural venous sinuses and [place] demonstrate no abnormality on this unenhanced studies. Paranasal sinuses: Clear. Mastoid air cells: Normal. Calvarium and scalp: Intact. IMPRESSION: 1. RIGHT parietal frontal hemorrhagic infarct is reidentified. This infarct was initially identified on 07/26/2023. Interval evolution as expected. 2. No new infarct. 3. Mild small vessel ischemic disease.
--- NOTE | 2023-09-08 13:00 | MR_ITS ---
WS: [email or web address] MRA ANGIOGRAPHY [place] HISTORY: Recent CVA COMPARISON: None available. TECHNIQUE: 3-D MR angiography is performed of the [place]. All images are reviewed including source images. Small caliber but patent LEFT vertebral artery. Mildly dominant RIGHT vertebral artery. Normal basila r artery. LEFT posterior cerebral artery communicates with the LEFT carotid artery. Patent circ ulation on the LEFT. Normal RIGHT [employer]. Poorly visualized RIGHT posterior communicating artery may be absent or hypoplastic. Normal intracranial carotid arteries. No areas of high-grade stenosis. Mild atherosclerotic plaque in the supraclinoid arteries. Middle cerebral and anterior cerebral arteries are normal. No significant paucity of vessels is noted in the distal RIGHT MCA territory extending to the infarct. No aneurysm. IMPRESSION: 1. No significant stenosis or aneurysm [place]. 2. No significant paucity of vessels in the distal RIGHT MCA territory.
== END 2023-09-08 12:12 | disposition home or self-care (01) ==
LOC: RAD 12:12
PROVIDERS: PCP Family Medicine; Visit Provider Family Medicine
DX: Z86.73 Personal history of transient ischemic attack (TIA), and cerebral infarction without residual deficits (principal); I67.89 Other cerebrovascular disease
CPT/HCPCS: 70544; 70551

== ENCOUNTER 2023-09-15 15:04 | Outpatient (CLI) | payer MEDICARE, OTHER, SELFPAY ==
--- NOTE | 2023-09-15 15:15 | MR_ITS ---
WS: [email or web address] MRA CAROTID WITHOUT AND WITH GADOLINIUM ENHANCEMENT TECHNIQUE: Axial 2-D TOF and 3D gadolinium bolus images obtained with axial images and axial, sagitta l, and coronal 2-D reformatted images. CLINICAL INFORMATION: CVA, acute. COMPARISON: CTA 07/26/2023 FINDINGS: RIGHT: RIGHT common carotid artery is patent. No significant RIGHT ICA stenosis. RIGHT ICA is patent to the skull base. LEFT: LEFT common carotid artery is patent. No significant LEFT ICA stenosis. LEFT ICA is patent to t he skull base. RIGHT dominant vertebral artery. Smaller but patent LEFT vertebral artery. Bovine arch anatomy. IMPRESSION: 1. No significant ICA stenosis bilaterally. Both ICAs are patent to the skull base. 2. RIGHT dominant vertebral artery. Smaller but patent LEFT vertebral artery. 3. Bovine arch.
[2023-09-15] MEDS: gadobenate dimeglumine 20 mL vial IV (15:52)
== END 2023-09-15 15:05 | disposition home or self-care (01) ==
LOC: RAD 15:04
PROVIDERS: PCP Family Medicine; Visit Provider Family Medicine
DX: I63.511 Cerebral infarction due to unspecified occlusion or stenosis of right middle cerebral artery (principal)
CPT/HCPCS: 70548; A9577

== ENCOUNTER → 2023-09-28 12:10 | Outpatient (BNVA) | payer MEDICARE, OTHER, SELFPAY | PROVIDERS: PCP Family Medicine; Visit Provider Specialist | DX: I42.8 Other cardiomyopathies (principal); I51.81 Takotsubo syndrome; I63.511 Cerebral infarction due to unspecified occlusion or stenosis of right middle cerebral artery; F17.219 Nicotine dependence, cigarettes, with unspecified nicotine-induced disorders | CPT/HCPCS: 99214 ==

== ENCOUNTER → 2024-01-20 11:30 | Outpatient (BNVA) | payer MEDICARE, OTHER, SELFPAY | PROVIDERS: PCP Family Medicine; Visit Provider Internal Medicine Cardiovascular Disease | DX: I51.81 Takotsubo syndrome (principal); F17.219 Nicotine dependence, cigarettes, with unspecified nicotine-induced disorders; E78.5 Hyperlipidemia, unspecified; I10 Essential (primary) hypertension; Z86.73 Personal history of transient ischemic attack (TIA), and cerebral infarction without residual deficits | CPT/HCPCS: 99214 ==

== ENCOUNTER → 2024-01-26 12:47 | Outpatient (BNVA) | payer MEDICARE, OTHER, SELFPAY | PROVIDERS: PCP Family Medicine; Visit Provider Specialist | DX: I42.8 Other cardiomyopathies (principal); I51.81 Takotsubo syndrome; I63.9 Cerebral infarction, unspecified; I10 Essential (primary) hypertension; F17.219 Nicotine dependence, cigarettes, with unspecified nicotine-induced disorders | CPT/HCPCS: 99213; 99214 ==

== ENCOUNTER 2024-02-03 09:52 | Outpatient (CLI) | payer OTHER, MEDICARE, SELFPAY ==
--- NOTE | 2024-02-03 10:00 | CT_ITS ---
WS: [email or web address] LDCT LUNG CANCER SCREENING HISTORY: F17.219 - Nicotine dependence, cigarettes, with unspecifi... TECHNIQUE: Axial imaging performed from the apices to 1 cm below the costophrenic angles. Coronal and sagittal reformats are submitted with axial MIP series. All CT scans at [facility] use at least one of these dose optimization techniques: automated exposure control; mA and/or kV adjustment per patient size (includes targeted exams where dose is matched to clinical indication); or iterativ e reconstruction. DLP: 71.42 mGy.cm DIvol: Mean CTDIvol: 1.60 (mGy) COMPARISON: 10/13/2022 Diagnostic quality: Satisfactory Lungs: Moderate centrilobular emphysema. Patient has numerous bilateral, subcentimeter noncalcified p ulmonary nodules. These nodules were described on 10/13/2022. There is been no increase in size. The l argest nodule is 5 mm in the LEFT lower lobe. No mass. No endobronchial lesions. Heart: Normal size heart with no pericardial effusion.. Extensive coronary artery calcifications. Other findings: Mediastinal and hilar lymph nodes. Some of these lymph nodes are calcified. No enlarg ing lymph nodes. Mild atherosclerosis aorta. Pulmonary artery size is slightly larger than the aorta. Moderate-sized hiatal hernia. Hepatic steatosis. No adrenal mass. Increase in thoracic kyphosis. CT/CT lung screening [id number] IMPRESSION: LUNG-RADS: 2-Benign Appearance or Behavior FOLLOW UP: 12 Month: Continue annual screening with LDCT OTHER FINDINGS (S MODIFIER): None.
== END 2024-02-03 09:53 | disposition home or self-care (01) ==
LOC: RAD 09:55
PROVIDERS: PCP Family Medicine; Visit Provider Specialist
DX: F17.219 Nicotine dependence, cigarettes, with unspecified nicotine-induced disorders (principal); J43.2 Centrilobular emphysema; R91.8 Other nonspecific abnormal finding of lung field; K44.9 Diaphragmatic hernia without obstruction or gangrene; I70.0 Atherosclerosis of aorta
CPT/HCPCS: 71271

== ENCOUNTER → 2024-02-08 09:37 | Outpatient (BNVA) | payer OTHER, MEDICARE, SELFPAY | PROVIDERS: PCP Family Medicine; Visit Provider Family Medicine | DX: Z00.00 Encounter for general adult medical examination without abnormal findings (principal); E78.5 Hyperlipidemia, unspecified; I63.9 Cerebral infarction, unspecified; I51.81 Takotsubo syndrome; R79.89 Other specified abnormal findings of blood chemistry; E55.9 Vitamin D deficiency, unspecified; E83.42 Hypomagnesemia | CPT/HCPCS: 80053; 80061; 82306; 82607; 83036; 83735; 84443; 85025 ==

== ENCOUNTER 2024-02-11 08:51 | Outpatient (CLI) | payer OTHER, MEDICARE, SELFPAY ==
[2024-02-11 10:02] LABS: Basophils % 0.4 %; Eosinophils # 0.2 10^3/uL (0.0-0.8); Eosinophils % 2.4 %; Hematocrit 33.1 % (36-47); Lymphocytes # 1.8 10^3/uL (0.8-4.8); Lymphocytes % 26.3 %; Mean Corpuscular HGB Conc 34.1 g/dL (30-55); Mean Corpuscular Hemoglobin 31.1 pg (27-33); Mean Corpuscular Volume 91.2 fl (85-98); Mean Platelet Volume 9.7 fL (7.4-10.4); Monocytes # 0.4 10^3/uL (0.2-0.9); Monocytes % 5.9 %; Neutrophils % 64.6 %; Nucleated Red Blood Cells % 0 %; Platelet Count 202 10^3/cmm (157-399); Red Blood Count 3.63 10^6/uL (3.85-5.65)
[2024-02-11 10:03] LABS: White Blood Count 6.97 10^3/uL (3.29-11.43)
== END 2024-02-11 08:52 | disposition home or self-care (01) ==
LOC: LAB 08:54
PROVIDERS: PCP Family Medicine; Visit Provider Family Medicine
DX: E78.5 Hyperlipidemia, unspecified (principal); Z00.00 Encounter for general adult medical examination without abnormal findings; I63.9 Cerebral infarction, unspecified; I51.81 Takotsubo syndrome
CPT/HCPCS: 85025

== ENCOUNTER 2024-02-21 15:23 | Outpatient (CLI) | payer OTHER, MEDICARE, SELFPAY ==
[2024-02-21 16:34] LABS: Anion Gap 16.2 (5-19); Blood Urea Nitrogen 17 mg/dL (8-23); Calcium 9.8 mg/dL (8.5-10.5); Carbon Dioxide 24 mmol/L (22-29); Chloride 99 mmol/L (98-107); Glomerular Filtration Rate 83.7 mL/min (90-130); Glucose 109 mg/dL (65-115); Osmolality Calculated 282 mOsm/kg (285-295); Potassium 4.2 mmol/L (3.5-5.1); Sodium 135 mmol/L (136-145)
== END 2024-02-21 15:24 | disposition home or self-care (01) ==
LOC: LAB 15:24
PROVIDERS: PCP Family Medicine; Visit Provider Family Medicine
DX: E87.5 Hyperkalemia (principal)
CPT/HCPCS: 36415; 80048

== ENCOUNTER 2024-02-29 10:22 | Outpatient (CLI) | payer OTHER, MEDICARE, SELFPAY ==
--- NOTE | 2024-02-29 10:30 | MM_ITS ---
WS: [id number] BILATERAL 3D TOMOSYNTHESIS DIGITAL SCREENING MAMMOGRAPHY WITH CAD CLINICAL INFORMATION: Screening. HISTORY: Screening mammogram. No current complaints. COMPARISON: 2022 TECHNIQUE: Bilateral CC and MLO views. FINDINGS: Scattered fibroglandular densities bilaterally. No suspicious focal mass, asymmetry, calcifications, or architectural distortion. No evidence of malignancy. Few tiny incidental punctate calcifications. Biopsy clip RIGHT breast. MM/[place] [id number] IMPRESSION: BI-RADS: 2-Benign FOLLOW UP: 1 Year Follow-up Recommend return to annual screening mammography.
== END 2024-02-29 10:23 | disposition home or self-care (01) ==
LOC: RAD 10:22
PROVIDERS: PCP Family Medicine; Visit Provider Family Medicine
DX: Z12.31 Encounter for screening mammogram for malignant neoplasm of breast (principal); I63.511 Cerebral infarction due to unspecified occlusion or stenosis of right middle cerebral artery; I42.8 Other cardiomyopathies; I63.9 Cerebral infarction, unspecified; D59.12 Cold autoimmune hemolytic anemia; R92.323 Mammographic fibroglandular density, bilateral breasts
CPT/HCPCS: 77063; 77067; 83883; 84155; 84165

== ENCOUNTER 2024-04-14 07:59 | Oncology outpatient (recurring) (ONCR) | payer MEDICARE, OTHER, SELFPAY ==
[2024-04-14 09:04] LABS: Alanine Aminotransferase 14 U/L (0-33); Albumin Level 4.2 g/dL (3.5-5.2); Alkaline Phosphatase 116 U/L (35-105); Aspartate Amino Transferase 16 U/L (0-32); Blood Urea Nitrogen 16 mg/dL (8-23); Calcium 9.3 mg/dL (8.5-10.5); Carbon Dioxide 25 mmol/L (22-29); Chloride 105 mmol/L (98-107); Creatinine Clr Calc Pharmacy 70.1462; Globulin 3.1 g/dL (1.3-4.6); Glomerular Filtration Rate 99.7 mL/min (90-130); Glucose 110 mg/dL (65-115); Osmolality Calculated 286 mOsm/kg (285-295); Sodium 137 mmol/L (136-145); Total Bilirubin 0.4 mg/dL (0.15-1.2); Total Protein 7.3 g/dL (6.6-8.7)
[2024-04-14 09:17] LABS: Lactate Dehydrogenase 232 U/L (135-214)
[2024-04-14 10:03] LABS: Eosinophils # 0.2 10^3/uL (0.0-0.8); Hematocrit 40.4 % (36-47); Mean Corpuscular HGB Conc 32.9 g/dL (30-55); Mean Corpuscular Hemoglobin 30.8 pg (27-33); Nucleated Red Blood Cells % 0 %; Red Blood Count 4.32 10^6/uL (3.85-5.65); Red Cell Distribution Width 13.1 % (12.1-15.1); White Blood Count 8.05 10^3/uL (3.29-11.43)
[2024-04-14 10:05] LABS: Mean Corpuscular Volume 93.5 fl (85-98); Mean Platelet Volume 9.9 fL (7.4-10.4); Platelet Count 309 10^3/cmm (157-399)
[2024-04-14 10:06] LABS: Basophils # 0.1 10^3/uL (0.0-0.1); Basophils % 0.5 %; Eosinophils % 3.1 %; Lymphocytes # 3.3 10^3/uL (0.8-4.8); Lymphocytes % 33.4 %; Monocytes # 0.6 10^3/uL (0.2-0.9); Monocytes % 6.6 %; Neutrophils # 5.61 10^3/uL (1.8-7.7); Neutrophils % 57.2 %
== END 2024-05-04 23:59 | disposition home or self-care (01) ==
PROVIDERS: PCP Family Medicine; Visit Provider Internal Medicine Hematology & Oncology
DX: D59.12 Cold autoimmune hemolytic anemia (principal)
CPT/HCPCS: 36415; 80053; 83010; 83615; 85025; 85045; 86157; 86880; 99204

== ENCOUNTER 2024-05-26 09:23 | Oncology outpatient (recurring) (ONCR) | payer MEDICARE, OTHER, SELFPAY ==
[2024-05-26 10:03] LABS: Alanine Aminotransferase 12 U/L (0-33); Albumin Level 4.1 g/dL (3.5-5.2); Alkaline Phosphatase 101 U/L (35-105); Anion Gap 14.4 (5-19); Aspartate Amino Transferase 15 U/L (0-32); Blood Urea Nitrogen 16 mg/dL (8-23); Calcium 9.7 mg/dL (8.5-10.5); Carbon Dioxide 25 mmol/L (22-29); Chloride 100 mmol/L (98-107); Creatinine Clr Calc Pharmacy 70.3419; Glomerular Filtration Rate 83.5 mL/min (90-130); Glucose 97 mg/dL (65-115); Lactate Dehydrogenase 181 U/L (135-214); Osmolality Calculated 281 mOsm/kg (285-295); Potassium 4.4 mmol/L (3.5-5.1); Sodium 135 mmol/L (136-145); Total Bilirubin 0.5 mg/dL (0.15-1.2); Total Protein 7.1 g/dL (6.6-8.7)
== END 2024-06-03 23:59 | disposition home or self-care (01) ==
PROVIDERS: PCP Family Medicine; Visit Provider Internal Medicine Hematology & Oncology
DX: D59.12 Cold autoimmune hemolytic anemia (principal); M79.642 Pain in left hand; F17.210 Nicotine dependence, cigarettes, uncomplicated
CPT/HCPCS: 36415; 80053; 83010; 83615; 85025; 99214

== ENCOUNTER 2024-07-10 07:26 | Oncology outpatient (recurring) (ONCR) | payer OTHER, MEDICARE, SELFPAY | END 2024-08-04 23:59 | disposition home or self-care (01) | PROVIDERS: PCP Family Medicine; Visit Provider Internal Medicine Hematology & Oncology | DX: D59.12 Cold autoimmune hemolytic anemia (principal) | CPT/HCPCS: 36415; 85025 ==

== ENCOUNTER 2024-10-09 11:54 | Oncology outpatient (recurring) (ONCR) | payer OTHER, MEDICARE, SELFPAY ==
[2024-10-09 12:30] LABS: Alanine Aminotransferase 11 U/L (0-33); Albumin Level 4.4 g/dL (3.5-5.2); Alkaline Phosphatase 118 U/L (35-105); Anion Gap 13.1 (5-19); Aspartate Amino Transferase 14 U/L (0-32); Blood Urea Nitrogen 10 mg/dL (8-23); Calcium 9.8 mg/dL (8.5-10.5); Carbon Dioxide 26 mmol/L (22-29); Chloride 102 mmol/L (98-107); Creatinine Clr Calc Pharmacy 68.9737; Globulin 3.3 g/dL (1.3-4.6); Glomerular Filtration Rate 99.7 mL/min (90-130); Glucose 95 mg/dL (65-115); Osmolality Calculated 283 mOsm/kg (285-295); Potassium 4.1 mmol/L (3.5-5.1); Sodium 137 mmol/L (136-145); Total Bilirubin 0.6 mg/dL (0.15-1.2); Total Protein 7.7 g/dL (6.6-8.7)
[2024-10-09 13:01] LABS: Eosinophils % 1.9 %; Hematocrit 42.9 % (36-47); Lymphocytes % 31.5 %; Mean Corpuscular HGB Conc 34.3 g/dL (30-55); Mean Corpuscular Hemoglobin 31.8 pg (27-33); Mean Corpuscular Volume 92.9 fl (85-98); Mean Platelet Volume 8.9 fL (7.4-10.4); Monocytes % 5.6 %; Neutrophils % 60.2 %; Platelet Count 312 10^3/cmm (157-399); Red Blood Count 4.62 10^6/uL (3.85-5.65); Red Cell Distribution Width 12.9 % (12.1-15.1); White Blood Count 11.34 10^3/uL (3.29-11.43)
[2024-10-09 13:02] LABS: Basophils % 0.3 %; Eosinophils # 0.1 10^3/uL (0.0-0.8); Lymphocytes # 1.2 10^3/uL (0.8-4.8); Monocytes # 0.2 10^3/uL (0.2-0.9); Neutrophils # 2.28 10^3/uL (1.8-7.7); Nucleated Red Blood Cells % 0 %
== END 2024-11-01 23:59 | disposition home or self-care (01) ==
PROVIDERS: PCP Family Medicine; Visit Provider Internal Medicine Medical Oncology
DX: D59.12 Cold autoimmune hemolytic anemia (principal)
CPT/HCPCS: 80053; 85025; 86157

== ENCOUNTER 2025-01-26 09:08 | Oncology outpatient (recurring) (ONCR) | payer OTHER, MEDICARE, SELFPAY ==
--- NOTE | 2025-01-26 09:15 | USCV_ITS ---
Michelle Lopez Age: 69 Gender: F : 1955 Exam Date: 01/26/2025 10:01 Ordering Phys: Prem Wade DO Technologist: Nate Jacome Exam Location: [facility] Indication: takotsubo syndrome BP: 151 / 77 HR: Rhythm: Sinus Technical Quality: Adequate MEASUREMENTS (Male / Female) Normal Values 2D ECHO LV Diastolic Diameter PLAX 3.0 cm 4.2 - 5.9 / 3.9 - 5.3 cm IVS Diastolic Thickness 1.5 cm 0.6 - 1.0 / 0.6 - 0.9 cm IVS Systolic Thickness 1.5 cm LVPW Diastolic Thickness 1.5 cm 0.6 - 1.0 / 0.6 - 0.9 cm LVPW Systolic Thickness 1.3 cm LVOT Diameter 2.0 cm LV Ejection Fraction 2D Teich 78.4 % LV Ejection Fraction MOD 4C 74.1 % LV Ejection Fraction MOD 2C 67.6 % LV Ejection Fraction 2C AL 68.1 % LA Diameter 3.2 cm RA Systolic Volume 4C AL 33.9 ml RA Systolic Volume 4C MOD 34.5 ml LA Sys Volume AL 35.7 cm cubed LA Sys Volume Index AL 18.8 cm cubed/m squared Aorta at Sinotubular Diameter 2.5 cm IVC Diameter 1.5 cm M-MODE LA Ao Ratio MM 1.3 AV Cusp Separation MM 1.6 cm FINDINGS Left Ventricle Normal left ventricular cavity size. Normal left ventricular systolic function. Ejection fraction 68%. No wall motion abnormality. Mild concentric left ventricular hypertrophy (wall thickness 1.1 cm). Right Ventricle Normal right ventricular size and systolic function Right Atrium Left Atrium Agitated saline study (bubble study) was performed which was negative for intracardiac shunt. Mitral Valve Aortic Valve Tricuspid Valve Pulmonic Valve Pericardium Aorta IVC CONCLUSIONS 1. Study was ordered as a limited echocardiogram with bubble study 2. Normal left ventricular and right ventricular size and systolic function. Ejection fraction 68% 3. Agitated saline study negative for intracardiac shunt. Jluis Michaud (Electronically Signed) Final Date: 26 January 2025 15:24 S
== END 2025-02-01 23:59 | disposition home or self-care (01) ==
PROVIDERS: PCP Family Medicine; Visit Provider Internal Medicine Medical Oncology
DX: I51.81 Takotsubo syndrome (principal); I50.20 Unspecified systolic (congestive) heart failure; R93.1 Abnormal findings on diagnostic imaging of heart and coronary circulation
CPT/HCPCS: C8924

== ENCOUNTER 2025-04-20 07:29 | Outpatient (CLI) | payer MEDICARE, OTHER, SELFPAY ==
--- NOTE | 2025-04-20 07:45 | CT_ITS ---
WS: [id number] LDCT LUNG CANCER SCREENING HISTORY: F17.219 - Nicotine dependence, cigarettes, with unspecifi... TECHNIQUE: Axial imaging performed from the apices to 1 cm below the costophrenic angles. Coronal and sagittal reformats are submitted with axial MIP series. All CT scans at [facility] use at least one of these dose optimization techniques: automated exposure control; mA and/or kV adjustment per patient size (includes targeted exams where dose is matched to clinical indication); or iterative reconstruction. DLP: 72.21 mGy.cm DIvol: Mean CTDIvol: 1.50 (mGy) COMPARISON: 02/03/2024, 10/13/2022 Diagnostic quality: Satisfactory Lungs: Hyperinflated lungs with paraseptal and centrilobular emphysema. Numerous noncalcified and multi lobar subcentimeter pulmonary nodules are reidentified. The largest nodule 5 mm in the LEFT lower lobe. No increase in size or number. No pneumonia. No endobronchial lesions. Heart: Normal size heart with no pericardial effusion.. Other findings: Advanced calcification in the coronary arteries. No mediastinal or hilar lymphadenopathy. Small lymph nodes are present and some of these contain calcifications. Mild atherosclerosis aorta. Normal size pulmonary artery. Mild scoliosis and increased thoracic kyphosis. CT/CT lung screening [id number] IMPRESSION: LUNG-RADS: 2-Benign Appearance or Behavior FOLLOW UP: 12 Month: Continue annual screening with LDCT OTHER FINDINGS (S MODIFIER): None.
== END 2025-04-20 07:30 | disposition home or self-care (01) ==
LOC: RAD 07:30
PROVIDERS: PCP Family Medicine; Visit Provider Family Medicine
DX: Z12.2 Encounter for screening for malignant neoplasm of respiratory organs (principal); F17.219 Nicotine dependence, cigarettes, with unspecified nicotine-induced disorders; F17.210 Nicotine dependence, cigarettes, uncomplicated; J43.2 Centrilobular emphysema; J43.8 Other emphysema; R91.8 Other nonspecific abnormal finding of lung field; I25.84 Coronary atherosclerosis due to calcified coronary lesion; I70.0 Atherosclerosis of aorta; M41.9 Scoliosis, unspecified; M42.04 Juvenile osteochondrosis of spine, thoracic region
CPT/HCPCS: 71271

== ENCOUNTER 2025-04-24 07:39 | Outpatient (CLI) | payer MEDICARE, OTHER, SELFPAY ==
--- NOTE | 2025-04-24 08:00 | MM_ITS ---
WS: [id number] BILATERAL 3D TOMOSYNTHESIS DIGITAL SCREENING MAMMOGRAPHY WITH CAD CLINICAL INFORMATION: Z12.31 - Encounter for screening mammogram for malignant ... HISTORY: Screening mammogram. No current complaints. COMPARISON: 2023 TECHNIQUE: Bilateral CC and MLO views. FINDINGS: Scattered fibroglandular densities bilaterally. No suspicious focal mass, asymmetry, calcifications, or architectural distortion. No evidence of malignancy. A few incidental punctate calcifications. Vascular calcifications. Stable RIGHT breast biopsy clip MM/MM scr tomosynthesis [id number] IMPRESSION: DENSITY: There are scattered areas of fibroglandular density. BI-RADS: 2 - Benign. FOLLOW UP: 1 Year Follow-up Recommend return to annual screening mammography.
== END 2025-04-24 07:40 | disposition home or self-care (01) ==
LOC: RAD 07:40
PROVIDERS: PCP Family Medicine; Visit Provider Family Medicine
DX: Z12.31 Encounter for screening mammogram for malignant neoplasm of breast (principal); R92.323 Mammographic fibroglandular density, bilateral breasts; R92.1 Mammographic calcification found on diagnostic imaging of breast; N64.89 Other specified disorders of breast; Z96.89 Presence of other specified functional implants
CPT/HCPCS: 77063; 77067

== ENCOUNTER → 2025-06-21 11:00 | Outpatient (BNVA) | payer MEDICARE, OTHER, SELFPAY | PROVIDERS: PCP Family Medicine; Visit Provider Family Medicine | DX: R79.89 Other specified abnormal findings of blood chemistry (principal); E78.5 Hyperlipidemia, unspecified; I10 Essential (primary) hypertension; I42.8 Other cardiomyopathies; E55.9 Vitamin D deficiency, unspecified | CPT/HCPCS: 80053; 80061; 82306; 82607; 84439; 84443; 85025 ==